=== PATIENT | female | born 1945 | race Asian ===

== ENCOUNTER 2019-12-22 09:50 | Outpatient (REF) | payer MEDICARE, MEDICAID, SELFPAY ==
[2019-12-22 11:45] LABS: Estimated Average Glucose 237 mg/dL; Hemoglobin A1c % 9.9 %
[2019-12-22 11:52] LABS: Anion Gap 12 (12-20); Blood Urea Nitrogen 16 mg/dL (9-16); Carbon Dioxide 29 mmol/L (22-29); Chloride 101 mmol/L (96-108); Estimated Glomerular Filt Rate > 60; Glucose Random 220 mg/dL (60-115); Potassium 4.3 mmol/l (3.3-5.1); Sodium 138 mmol/L (135-145)
[2019-12-23 08:07] LABS: LDL Cholesterol Direct 76 mg/dL (<100)
== END 2019-12-22 09:51 | disposition home or self-care (01) ==
LOC: HO.HMGCLDS 09:50
PROVIDERS: PCP Internal Medicine; Visit Provider Internal Medicine
DX: E11.65 Type 2 diabetes mellitus with hyperglycemia (principal); E78.9 Disorder of lipoprotein metabolism, unspecified; I10 Essential (primary) hypertension; Z79.4 Long term (current) use of insulin
CPT/HCPCS: 80048; 83036; 83721

== ENCOUNTER 2020-07-02 11:28 | Outpatient (REF) | payer MEDICARE, MEDICAID, SELFPAY ==
[2020-07-02 14:28] LABS: Alanine Aminotransferase 22 U/L (0-31); Alkaline Phosphatase 79 U/L (39-117); Anion Gap 12 (12-20); Aspartate Amino Transferase 26 U/L (5-31); Bilirubin Total 0.4 mg/dL (0.0-1.0); Blood Urea Nitrogen 13 mg/dL (9-16); Calcium 9.1 mg/dL (8.4-10.2); Carbon Dioxide 28 mmol/L (22-29); Chloride 101 mmol/L (96-108); Estimated Glomerular Filt Rate 59; Glucose Random 290 mg/dL (60-115); Potassium 4.3 mmol/L (3.3-5.1); Sodium 137 mmol/L (135-145); Total Protein 6.7 g/dL (6.5-8.0)
== END 2020-07-02 11:29 | disposition home or self-care (01) ==
LOC: HO.HMGCLDS 11:28
PROVIDERS: PCP Internal Medicine; Visit Provider Internal Medicine
DX: E78.9 Disorder of lipoprotein metabolism, unspecified (principal); I10 Essential (primary) hypertension
CPT/HCPCS: 36415; 80053

== ENCOUNTER 2020-09-25 09:24 | Emergency (ER) | payer MEDICARE, MEDICAID, SELFPAY ==
--- NOTE | ~2020-09-25 | CT_ITS ---
EXAMINATION: CT ANGIOGRAM HEAD AND NECK CLINICAL INFORMATION: Severe dizziness COMPARISON: None TECHNIQUE: Noncontrast CT examination of the head was performed initially. Test bolus sequences followed by intravenous administration 100 mL of Omnipaque 300 intravenous contrast. Helical imaging was performed in the axial plane from the mediastinum to the skull vertex. Delayed postcontrast imaging of the head was also performed. The data was processed at the sonography technologist's workstation for generation of MIP sequences. Three-dimensional volume rendered reformatted images were also generated at an offline 3-D workstation. This CT examination was performed using dose optimization techniques as appropriate, variously including the following: *Automated exposure control *Adjustment of mA and/or kV according to patient size (this includes techniques or standardized protocols for targeted exams where dose is matched to indication/reason for exam; i.e. extremities or head) *Use of iterative reconstruction technique The degree of stenosis determined by NASCET criteria. DLP: 2338 mGy-cm FINDINGS: SOFT TISSUES AND LUNG APICES: No overt abnormality is appreciated. CTA NECK: The aortic arch has a classic configuration and the major arch vessel origins are non-stenotic. The vertebral arteries are co-dominant and both vertebral origins are widely patent. Both common carotid arteries are normal in course and caliber. Both internal carotid arteries demonstrate mild atherosclerotic plaque without significant stenosis. CTA HEAD: There is normal opacification of the major intracranial vessels. No acute proximal large vessel occlusion, focal flow-limiting stenosis, or saccular intracranial aneurysm is identified. No abnormal parenchymal enhancement or regional oligemia is visualized. HEAD (noncontrast and delayed): No intracranial mass, intercerebral edema, hemorrhage, or midline shift is evident. The ventricles and sulci are stable in size and configuration. No extra-axial collections are appreciated. No pathologic intracranial enhancement. Cavernous carotid calcifications. Dural sinuses are patent. The paranasal sinuses are well-aerated and clear. CT/CT angio head neck IMPRESSION: No vascular occlusion or hemodynamic significant stenosis within the intracranial or extracranial arterial vasculature.
[2020-09-25 09:36] VITALS: BP 151/59; PULSE 73; RESP 16; TEMP 36.6; O2SAT 97; BMI 31.8
--- NOTE | 2020-09-25 09:56 | ED.DIZZY ---
HPI - Dizziness General Chief Complaint: Dizziness Stated Complaint: dizziness Time Seen by Provider: 09/25/20 09:56 Source: patient and family Mode of arrival: ambulatory Limitations: no limitations History of Present Illness HPI Narrative: Patient history of diabetes missed her insulin today with complaining of dizziness for last 2 weeks gets worse, when he when she extends or flexes and neck, feel off balance sometimes no headache no nausea no vomiting patient used to have dizziness long time ago not lately no fever no chills no shortness of breath no chest no palpitation Related Data Home Medications Medication Instructions Recorded Confirmed aspirin 81 mg tablet,delayed 81 mg PO DAILY 12/19/19 07/02/20 release (Adult Low Dose Aspirin) insulin glargine 100 unit/mL (3 unit SUBCUT 12/19/19 07/02/20 mL) subcutaneous pen insulin aspart U-100 100 unit/mL 0 - 20 unit SUBCUT TID 09/24/20 (3 mL) subcutaneous pen (Novolog Flexpen U-100 Insulin aspart) Previous Rx's Medication Instructions Recorded lisinopril 5 mg tablet 5 mg PO DAILY 90 Days #90 tab 07/28/20 simvastatin 40 mg tablet 40 mg PO BEDTIME 90 Days #90 tab 07/28/20 meclizine 12.5 mg tablet 12.5 mg PO TID PRN #30 tab 09/25/20 Allergies Allergy/AdvReac Type Severity Reaction Status Date / Time No Known Allergies Allergy Mild NONE Verified 09/24/20 10:13 Review of Systems Review of Systems: Yes all other systems are reviewed and are negative [facility] Past Medical History Medical History Diabetes 1.5, managed as type 1 Hypertension, essential Lipid disorder care home (current) use of insulin Non-compliant behavior Uncontrolled diabetes mellitus Surgical History History of cataract surgery History of hysterectomy History of surgery on wrist Family History Family History Father No problems noted. Mother Cancer Maternal Grandfather No problems noted. Maternal Grandmother No problems noted. Paternal Grandfather No problems noted. Paternal Grandmother No problems noted. Brother No problems noted. Brother No problems noted. Daughter No problems noted. Daughter Breast cancer Social History Social History Alcohol intake: never Patient Tobacco Use Status: Never used Tobacco Advance Directives: No Advance Directives Information Provided: No Physical Exam Vital Signs: Vital Signs: Last Vital Signs Temp 98.0 F 09/25/20 13:54 Pulse 57 09/25/20 13:54 Resp 18 09/25/20 13:54 BP 144/61 H 09/25/20 13:54 Pulse Ox 98 09/25/20 13:54 Body Mass Index 31.8 Appearance: Alert. Oriented X3. No acute distress. Eyes: PERRLA, No Nystagmus ENT: Pharynx normal. Oral Mucosa moist Neck: Normal inspection. Neck supple. CVS: Normal heart rate and rhythm. Pulses normal. Respiratory: No respiratory distress. Equal air entry bilateral, no wheezing/rales/rhonchi Abdomen: Soft and nontender. Bowel sounds are present, no mass palpable, no CVA tenderness Skin: Skin warm and dry. Normal skin color. Normal skin turgor. Extremities: No lower extremity edema. No calf tenderness Neuro: Oriented X 3. No motor deficit. No sensory deficit.No cerebellar signs , cranial nerves II-XII intact MDM - Dizziness MDM Narrative Medical decision making narrative: Patient with dizziness CTA head and neck is negative for any vascular pathology. No CVA likely benign positional vertigo discharge her on meclizine Differential Diagnosis Differential diagnosis: Likely benign paroxysmal positional vertigo Lab Data Attestation: I reviewed the patient's lab results. Result diagrams: 09/25/20 10:49 09/25/20 10:49 Labs: Lab Results 09/25/20 09/25/20 09/25/20 Range/Units 10:49 10:49 10:58 WBC 4.6 L (4.8-10.8) X10*3/uL RBC 3.96 L (4.20-5.50) X10*6/uL Hgb 11.4 L (12.0-16.0) g/dl Hct 35.1 L (37-47) % MCV 88.6 (80-98) fL MCH 28.8 (27.0-33.0) pg MCHC 32.5 (31.0-35.0) g/dl RDW 14.5 (11.0-16.0) % Plt Count 141 L (160-400) X10*3/uL MPV 11.2 (9.4-12.3) fL Immature Gran % (Auto) 0.2 (0.0-0.4) % Neut % (Auto) 56.8 (45-73) % Lymph % (Auto) 30.3 (20-40) % Beaver % (Auto) 10.0 (2-11) % Eos % (Auto) 2.0 (0-4) % Baso % (Auto) 0.7 (0-2) % Lymph # (Auto) 1.4 (1.2-4.9) X10*3/uL Beaver # (Auto) 0.5 (0.1-1.2) X10*3/uL Eos # (Auto) 0.1 (0.0-0.4) X10*3/uL Baso # (Auto) 0.0 (0.0-0.2) X10*3/uL Abs Immat Gran (auto) 0.01 (0.00-0.03) X10*3/uL Absolute Neuts (auto) 2.6 (2.0-8.3) X10*3/uL Absolute Nucleated RBC 0.000 (0.0-0.012) X10*3/uL Nucleated RBC % (auto) 0.0 (0.0-0.2) /100WBC Sodium 137 (135-145) mmol/L Potassium 4.1 (3.3-5.1) mmol/L Chloride 103 (96-108) mmol/L Carbon Dioxide 28 (22-29) mmol/L Anion Gap 10 L (12-20) BUN 15 (9-16) mg/dL Creatinine 1.00 (0.5-1.4) mg/dL Estim Creat Clear Calc 45.8 Estimated GFR 54 POC Glucose (60-115) mg/dL Random Glucose 369 H* (60-115) mg/dL Calcium 9.3 (8.4-10.2) mg/dL Total Bilirubin 0.3 (0.0-1.0) mg/dL Direct Bilirubin < 0.2 (0.0-0.5) mg/dL AST 27 (5-31) U/L ALT 27 (0-31) U/L Alkaline Phosphatase 77 (39-117) U/L Total Protein 6.1 L (6.5-8.0) g/dL Albumin 3.5 (3.5-5.0) g/dL Urine Color YELLOW Urine Appearance CLEAR Urine pH 5.5 (5.0-8.0) Ur Specific [place] 1.015 (1.005-1.025) Urine Protein NEG (NEG-TRACE) MG/DL Urine Glucose (UA) >=1000 H (NEG) MG/DL Urine Ketones NEG (NEG) MG/DL Urine Blood NEG (NEG) Urine Nitrite NEG (NEG) Ur Leukocyte Esterase NEG (NEG) Urine RBC 0-2 (0) /HPF Urine WBC 0-2 (0-4) /HPF Ur Squamous Epith Cells 2+ /LPF Urine Bacteria TRACE /LPF 09/25/20 Range/Units 12:37 WBC (4.8-10.8) X10*3/uL RBC (4.20-5.50) X10*6/uL Hgb (12.0-16.0) g/dl Hct (37-47) % MCV (80-98) fL MCH (27.0-33.0) pg MCHC (31.0-35.0) g/dl RDW (11.0-16.0) % Plt Count (160-400) X10*3/uL MPV (9.4-12.3) fL Immature Gran % (Auto) (0.0-0.4) % Neut % (Auto) (45-73) % Lymph % (Auto) (20-40) % Beaver % (Auto) (2-11) % Eos % (Auto) (0-4) % Baso % (Auto) (0-2) % Lymph # (Auto) (1.2-4.9) X10*3/uL [place]aver # (Auto) (0.1-1.2) X10*3/uL Eos # (Auto) (0.0-0.4) X10*3/uL Baso # (Auto) (0.0-0.2) X10*3/uL Abs Immat Gran (auto) (0.00-0.03) X10*3/uL Absolute Neuts (auto) (2.0-8.3) X10*3/uL Absolute Nucleated RBC (0.0-0.012) X10*3/uL Nucleated RBC % (auto) (0.0-0.2) /100WBC Sodium (135-145) mmol/L Potassium (3.3-5.1) mmol/L Chloride (96-108) mmol/L Carbon Dioxide (22-29) mmol/L Anion Gap (12-20) BUN (9-16) mg/dL Creatinine (0.5-1.4) mg/dL Estim Creat Clear Calc Estimated GFR POC Glucose 235 H (60-115) mg/dL Random Glucose (60-115) mg/dL Calcium (8.4-10.2) mg/dL Total Bilirubin (0.0-1.0) mg/dL Direct Bilirubin (0.0-0.5) mg/dL AST (5-31) U/L ALT (0-31) U/L Alkaline Phosphatase (39-117) U/L Total Protein (6.5-8.0) g/dL Albumin (3.5-5.0) g/dL Urine Color Urine Appearance Urine pH (5.0-8.0) Ur Specific [place] (1.005-1.025) Urine Protein (NEG-TRACE) MG/DL Urine Glucose (UA) (NEG) MG/DL Urine Ketones (NEG) MG/DL Urine Blood (NEG) Urine Nitrite (NEG) Ur Leukocyte Esterase (NEG) Urine RBC (0) /HPF Urine WBC (0-4) /HPF Ur Squamous Epith Cells /LPF Urine Bacteria /LPF Discharge Plan Discharge Clinical Impression: Benign paroxysmal positional vertigo Patient Disposition: Home, Self-Care Instructions: Benign Paroxysmal Positional Vertigo (ED) Additional Instructions: Take your insulin for diabetes as prescribed Medication for dizziness every 8 hours as needed Care and cautions as advised Follow-up with your PCP if not better Prescriptions: New meclizine 12.5 mg tablet 12.5 mg PO TID PRN (Reason: dizziness) Qty: 30 RF: 0 No Action lisinopril 5 mg tablet 5 mg PO DAILY 90 Days Qty: 90 RF: 0 simvastatin 40 mg tablet 40 mg PO BEDTIME 90 Days Qty: 90 RF: 0 Basaglar KwikPen U-100 Insulin 100 unit/mL (3 mL) insulin pen subcut RF: 0 aspirin [Adult Low Dose Aspirin] 81 mg tablet,delayed release (DR/EC) 81 mg PO DAILY RF: 0 Interventions: ED Discharge Assessment Last Done: 09/25/20 14:11 Discharge Date/Time: 09/25/20 14:12
--- NOTE | 2020-09-25 10:39 | ECG_ITS ---
Test Reason : DIZZINESS Blood Pressure : / mmHG Vent. Rate : 065 BPM Atrial Rate : 065 BPM P-R Int : 162 ms QRS Dur : 076 ms QT Int : 388 ms P-R-T Axes : -39 014 043 degrees QTc Int : 403 ms Unusual P axis, possible ectopic atrial rhythm Low voltage QRS Abnormal ECG When compared with ECG of 09-JAN-2008 15:28, Ectopic atrial rhythm has replaced Sinus rhythm Referred By: Williams Salgado Electronically Signed By:EMILIE JOHN
[2020-09-25 10:53] LABS: MANUAL DIFF FLAG NO
[2020-09-25 10:56] LABS: Basophils Percent Auto 0.7 % (0-2); Eosinophils Absolute Auto 0.1 X10*3/uL (0.0-0.4); Hematocrit 35.1 % (37-47); Hemoglobin 11.4 g/dl (12.0-16.0); Imm Gran Abs Auto 0.01 X10*3/uL (0.00-0.03); Imm Gran Pct Auto 0.2 % (0.0-0.4); Lymphocytes Absolute Auto 1.4 X10*3/uL (1.2-4.9); Lymphocytes Percent Auto 30.3 % (20-40); Mean Corpuscular HGB Conc 32.5 g/dl (31.0-35.0); Mean Corpuscular Hemoglobin 28.8 pg (27.0-33.0); Mean Corpuscular Volume 88.6 fL (80-98); Mean Platelet Volume 11.2 fL (9.4-12.3); Monocytes Absolute Auto 0.5 X10*3/uL (0.1-1.2); Neutrophils Absolute Auto 2.6 X10*3/uL (2.0-8.3); Neutrophils Percent Auto 56.8 % (45-73); Platelet Count 141 X10*3/uL (160-400); Red Blood Count 3.96 X10*6/uL (4.20-5.50); Red Cell Distribution Width 14.5 % (11.0-16.0); White Blood Count 4.6 X10*3/uL (4.8-10.8)
[2020-09-25 11:06] LABS: Appearance Urine CLEAR; Color Urine YELLOW; Glucose Urine UA >=1000 MG/DL (NEG); Leukocyte Esterase Urine NEG (NEG); Nitrite Urine NEG (NEG); PH 5.5 (5.0-8.0); Specific Gravity - Urine 1.015 (1.005-1.025); Urine Blood NEG (NEG); Urine Ketones NEG (NEG); Urine Protein NEG (NEG-TRACE)
[2020-09-25 11:13] LABS: Bacteria Urine TRACE /LPF; RBC Urine 0-2 /HPF (0); Squamous Epithelial Cell Urine 2+ /LPF; WBC Urine 0-2 /HPF (0-4)
[2020-09-25 11:26] LABS: Alanine Aminotransferase 27 U/L (0-31); Albumin Level 3.5 g/dL (3.5-5.0); Alkaline Phosphatase 77 U/L (39-117); Anion Gap 10 (12-20); Aspartate Amino Transferase 27 U/L (5-31); Bilirubin Direct < 0.2 mg/dL (0.0-0.5); Bilirubin Total 0.3 mg/dL (0.0-1.0); Blood Urea Nitrogen 15 mg/dL (9-16); Calcium 9.3 mg/dL (8.4-10.2); Carbon Dioxide 28 mmol/L (22-29); Chloride 103 mmol/L (96-108); Creatinine Clr Calc Pharmacy 45.8; Estimated Glomerular Filt Rate 54; Glucose Random 369 mg/dL (60-115); Potassium 4.1 mmol/L (3.3-5.1); Sodium 137 mmol/L (135-145); Total Protein 6.1 g/dL (6.5-8.0)
[2020-09-25] MEDS: Insulin Lispro 100 UNIT/ML 3 ML VIAL 8 UNIT SUBCUT (11:58)
[2020-09-25 11:59] VITALS: BP 137/52; PULSE 61; RESP 17; O2SAT 99
[2020-09-25] MEDS: 0.9 % Sodium Chloride 1,000 ML 999 ML IVCONT (11:59)
[2020-09-25 12:40] LABS: Glucose, Whole Blood 235 mg/dL (60-115)
[2020-09-25] MEDS: iohexoL 350 MG/ML 100 ML INFUS..BTL 65 ML IV (12:55)
[2020-09-25 13:54] VITALS: BP 144/61; PULSE 57; RESP 18; TEMP 36.7; O2SAT 98
== END 2020-09-25 14:12 | disposition home or self-care (01) ==
PROVIDERS: Emergency Provider Internal Medicine; PCP Internal Medicine
DX: H81.10 Benign paroxysmal vertigo, unspecified ear (principal); E10.9 Type 1 diabetes mellitus without complications; E78.5 Hyperlipidemia, unspecified; I10 Essential (primary) hypertension; Z79.4 Long term (current) use of insulin; Z79.82 Long term (current) use of aspirin; Z79.899 Other long term (current) drug therapy; Z79.02 Long term (current) use of antithrombotics/antiplatelets
CPT/HCPCS: 36415; 70496; 70498; 80048; 80076; 81001; 82947; 85025; 93005; 96360; 99284; Q9967

== ENCOUNTER 2021-01-21 09:53 | Outpatient (REF) | payer MEDICARE, MEDICAID, SELFPAY ==
[2021-01-21 12:13] LABS: Alanine Aminotransferase 34 U/L (0-31); Albumin Level 4.1 g/dL (3.5-5.0); Alkaline Phosphatase 84 U/L (39-117); Anion Gap 11 (12-20); Aspartate Amino Transferase 36 U/L (5-31); Bilirubin Total 0.5 mg/dL (0.0-1.0); Blood Urea Nitrogen 12 mg/dL (9-16); Calcium 9.6 mg/dL (8.4-10.2); Carbon Dioxide 30 mmol/L (22-29); Chloride 106 mmol/L (96-108); Estimated Glomerular Filt Rate 60; Glucose Random 125 mg/dL (60-115); Potassium 4.3 mmol/L (3.3-5.1); Sodium 143 mmol/L (135-145)
[2021-01-21 12:16] LABS: Creatinine Urine 202.75 mg/dL; Microalbum/Creatinine Ratio Ur 7.8 ug/mg cr
[2021-01-23 20:55] LABS: LDL Cholesterol Direct 89 mg/dL (<100)
== END 2021-01-21 09:54 | disposition home or self-care (01) ==
LOC: HO.HMGCLDS 09:53
PROVIDERS: PCP Internal Medicine; Visit Provider Internal Medicine
DX: E13.9 Other specified diabetes mellitus without complications (principal); I10 Essential (primary) hypertension; E78.9 Disorder of lipoprotein metabolism, unspecified; Z79.4 Long term (current) use of insulin
CPT/HCPCS: 36415; 80053; 82043; 83721; 84443

== ENCOUNTER 2021-10-31 09:03 | Outpatient (REF) | payer MEDICARE, MEDICAID, SELFPAY ==
[2021-10-31 11:22] LABS: MANUAL DIFF FLAG NO
[2021-10-31 11:37] LABS: Basophils Absolute Auto 0.1 X10*3/uL (0.0-0.2); Basophils Percent Auto 1.1 % (0-2); Eosinophils Absolute Auto 0.1 X10*3/uL (0.0-0.4); Eosinophils Percent Auto 1.6 % (0-4); Hematocrit 40.1 % (37.0-47.0); Hemoglobin 12.8 g/dl (12.0-16.0); Imm Gran Abs Auto 0.01 X10*3/uL (0.00-0.03); Imm Gran Pct Auto 0.2 % (0.0-0.4); Lymphocytes Absolute Auto 2.2 X10*3/uL (1.2-4.9); Lymphocytes Percent Auto 39.7 % (20-40); Mean Corpuscular HGB Conc 31.9 g/dl (31.0-35.0); Mean Corpuscular Hemoglobin 28.4 pg (27.0-33.0); Mean Corpuscular Volume 88.9 fL (80.0-98.0); Mean Platelet Volume 11.6 fL (9.4-12.3); Monocytes Absolute Auto 0.5 X10*3/uL (0.1-1.2); Monocytes Percent Auto 8.8 % (2-11); Neutrophils Absolute Auto 2.7 x10*3/uL (2.0-8.3); Neutrophils Percent Auto 48.6 % (45-73); Platelet Count 178 X10*3/uL (160-400); Red Blood Count 4.51 X10*6/uL (4.20-5.50); Red Cell Distribution Width 14.7 % (11.0-16.0); White Blood Count 5.5 X10*3/uL (4.8-10.8)
[2021-10-31 11:44] LABS: Estimated Average Glucose 206 mg/dL; Hemoglobin A1c % 8.8 %
[2021-10-31 12:04] LABS: Alanine Aminotransferase 34 U/L (0-31); Albumin Level 4.3 g/dL (3.5-5.0); Alkaline Phosphatase 98 U/L (39-117); Anion Gap 14 (12-20); Aspartate Amino Transferase 31 U/L (5-31); Bilirubin Total 0.4 mg/dL (0.0-1.0); Blood Urea Nitrogen 12 mg/dL (9-16); Calcium 9.7 mg/dL (8.4-10.2); Carbon Dioxide 28 mmol/L (22-29); Chloride 104 mmol/L (96-108); Cholesterol 173 mg/dL; Estimated Glomerular Filt Rate 58; Glucose Fasting 61 mg/dL (60-99); HDL Cholesterol 39 mg/dL; LDL Cholesterol Calculated 103 mg/dl; Potassium 4.1 mmol/L (3.3-5.1); Sodium 142 mmol/L (135-145); Total Protein 7.2 g/dL (6.5-8.0); Triglycerides 156 mg/dL
== END 2021-10-31 09:04 | disposition home or self-care (01) ==
LOC: HO.HMGCLDS 09:03
PROVIDERS: PCP Internal Medicine; Visit Provider Internal Medicine
DX: Z00.01 Encounter for general adult medical examination with abnormal findings (principal); E78.9 Disorder of lipoprotein metabolism, unspecified; I10 Essential (primary) hypertension; Z79.4 Long term (current) use of insulin; E13.9 Other specified diabetes mellitus without complications
CPT/HCPCS: 36415; 80053; 80061; 83036; 85025

== ENCOUNTER 2022-06-06 09:45 | Outpatient (REF) | payer MEDICARE, MEDICAID, SELFPAY ==
[2022-06-06 11:16] LABS: MANUAL DIFF FLAG NO
[2022-06-06 11:30] LABS: Basophils Absolute Auto 0.1 X10*3/uL (0.0-0.2); Eosinophils Absolute Auto 0.1 X10*3/uL (0.0-0.4); Eosinophils Percent Auto 0.9 % (0-4); Hematocrit 41.9 % (37.0-47.0); Hemoglobin 13.7 g/dl (12.0-16.0); Imm Gran Abs Auto 0.01 X10*3/uL (0.00-0.03); Imm Gran Pct Auto 0.2 % (0.0-0.4); Lymphocytes Absolute Auto 1.8 X10*3/uL (1.2-4.9); Lymphocytes Percent Auto 31.1 % (20-40); Mean Corpuscular HGB Conc 32.7 g/dl (31.0-35.0); Mean Corpuscular Hemoglobin 29.5 pg (27.0-33.0); Mean Corpuscular Volume 90.1 fL (80.0-98.0); Mean Platelet Volume 11.3 fL (9.4-12.3); Monocytes Absolute Auto 0.4 X10*3/uL (0.1-1.2); Monocytes Percent Auto 7.3 % (2-11); Neutrophils Absolute Auto 3.4 x10*3/uL (2.0-8.3); Neutrophils Percent Auto 59.5 % (45-73); Platelet Count 199 X10*3/uL (160-400); Red Blood Count 4.65 X10*6/uL (4.20-5.50); Red Cell Distribution Width 14.6 % (11.0-16.0); White Blood Count 5.8 X10*3/uL (4.8-10.8)
[2022-06-06 11:43] LABS: Estimated Average Glucose 223 mg/dL; Hemoglobin A1c % 9.4 %
[2022-06-06 12:14] LABS: Alanine Aminotransferase 43 U/L (0-31); Albumin Level 4.3 g/dL (3.5-5.0); Alkaline Phosphatase 107 U/L (39-117); Anion Gap 12 (12-20); Aspartate Amino Transferase 39 U/L (5-31); Bilirubin Total 0.4 mg/dL (0.0-1.0); Blood Urea Nitrogen 17 mg/dL (9-16); Calcium 10.2 mg/dL (8.4-10.2); Carbon Dioxide 29 mmol/L (22-29); Chloride 102 mmol/L (96-108); Estimated Glomerular Filt Rate 60; Glucose Random 218 mg/dL (60-115); Potassium 4.1 mmol/L (3.3-5.1); Sodium 139 mmol/L (135-145); Total Protein 7.4 g/dL (6.5-8.0)
[2022-06-08 00:33] LABS: LDL Cholesterol Direct 76 mg/dL (<100)
== END 2022-06-06 09:46 | disposition home or self-care (01) ==
LOC: HO.HMGCLDS 09:45
PROVIDERS: PCP Internal Medicine; Visit Provider Internal Medicine
DX: E13.9 Other specified diabetes mellitus without complications (principal); E78.9 Disorder of lipoprotein metabolism, unspecified; I10 Essential (primary) hypertension; L30.9 Dermatitis, unspecified; Z79.4 Long term (current) use of insulin
CPT/HCPCS: 36415; 80053; 83036; 83721; 85025

== ENCOUNTER 2023-01-24 08:54 | Outpatient (AMB) | payer MEDICARE, MEDICAID, SELFPAY ==
[2023-01-24 08:58] VITALS: BP 132/56; PULSE 77; O2SAT 99; BMI 32.0
--- NOTE | 2023-01-24 09:01 | AM.OFFVISMDC ---
Intake Vital Signs 01/24/23 08:58 Height 5 ft 2 in Weight 175 lb 2 oz BMI 32.0 BP 132/56 L Blood Pressure Location Rt brachial Position Sitting Pulse 77 Pulse Source Pulse Oximeter Pulse Oximetry (%) 99 Oxygen Delivery Method Room Air Intake Visit Reasons: SWV G0439 ~ Allergies dulaglutide [From Trulicity] Adverse Reaction (Intermediate, Verified 01/24/23 09:01) Dizziness HPI SWV G0439 ~ HPI Details Patient declined to do mammogram Declined to do OBGYN visit Declined to do colonoscopy Patient is going to [facility] endocrinology for the management of diabetes She does not remember what was her last A1c Blood pressure is stable patient is on lisinopril And she is also on statin for lipid control BMI is elevated need to lose weight Patient has already received diabetic teachings Lab order placed to be done today Follow-up May HPI Comments History of Present Illness Details AWV Medical/social history reviewed Past medical history reviewed [place] of care / care team list updated Surgical/ hospitalization history reviewed Current medications including OTC and supplements reviewed Family history reviewed Tobacco controlled form updated Alcohol use form updated Illicit drug use in social history reviewed Current diagnosis of depression ?screening updated Appropriate PHQ 2/PHQ-9 completed . Vital signs reviewed Alcohol tobacco drug use reviewed and discussed . MMSE completed . ? Fall risk: ?Assessed Fall history: ?None Have you had any falls with injury in the past year?? No Have you had 2 or more falls in the past year?? No Fall risk assessment completed Home safety discussed with the patient Functional ability assessed and discussed and documented Activities of daily living reviewed and appropriate actions taken . HRA filled out by the patient and reviewed by provider and scanned . Appropriate written screening schedule established . Any health advise needed provided . Advance care planning discussed with the patient , necessary paperwork filled Examination IPPE/AWE: Balance intact Romberg intact Tandem walk failed walk-in turn intact rise from sit to stand intact . ?Hearing ?whisper test failed . Medication list reviewed, patient is stable on medications All other providers patient is seeing discussed and noted . [facility] Medical History Uncontrolled diabetes mellitus Non-compliant behavior Lipid disorder Hypertension, essential emt intermediate (current) use of insulin Diabetes 1.5, managed as type 1 Surgical History History of cataract surgery History of surgery on wrist History of hysterectomy Family History Father No problems noted. Mother Cancer Maternal Grandfather No problems noted. Maternal Grandmother No problems noted. Paternal Grandfather No problems noted. Paternal Grandmother No problems noted. Brother No problems noted. Brother No problems noted. Daughter No problems noted. Daughter Breast cancer Social History Housing: House Alcohol intake: never Patient Tobacco Use Status: Never used Tobacco e-Cigarette/Vaping Use: Never Used service: No Current occupational status: retired Cognitive needs: No Hearing needs: No Vision needs: Yes Questionnaire Medicare Wellness Checkup [age] What gender do you identify with?: female During the past 4 weeks, how much have you been bothered by emotional problems such as feeling anxious, depressed, irritable, sad or downhearted, and blue?: not at all During the past 4 weeks, has your physical & emotional health limited your social activities with family, friends, neighbors, or groups?: not at all During the past 4 weeks, how much bodily pain have you generally had?: no pain During the past 4 weeks, was someone available to help you if you needed & wanted help?: yes, a little During the past 4 weeks, what was the hardest physical activity you could do for at least 2 minutes?: light Can you get to places out of walking distance without help? (For eg., can you travel alone on buses, taxis or drive your car?): No Can you go shopping for groceries or clothes without someone's help?: No Can you prepare your own meals?: Yes Can you do your housework without help?: No Because of any health problems, do you need the help of another person with your personal care needs such as eating, bathing, dressing or getting around the house?: Yes Can you handle your own money without help?: Yes During the past 4 weeks, how would you rate your health in general?: fair During the past 4 weeks how have things been going for you?: good & bad parts about equal Are you having difficulties driving your car?: not applicable, I don't use a car Do you always fasten your seat belt when you are in a car?: yes, usually During past 4 weeks, have you been bothered by the following: never: Sexual problems?, seldom: Teeth or denture problems?, sometimes: Falling or dizzy when standing up, Trouble eating well? and Problems using the telephone? and often: Tiredness or fatigue? Have you fallen 2 or more times in the past year?: Yes Are you afraid of falling?: Yes Are you a smoker?: no During the past 4 weeks, how many drinks of wine, beer, or other alcoholic beverages did you have?: no alcohol at all Do you exercise for about 20 minutes 3 or more times a week?: yes, some of the time Have you been given information to help with the following?: yes: Keeping track of your medications? and no: Hazards in your house that might hurt you? How confident are you that you can control & manage most of your health problems?: somewhat confident What is your race?: Mini Mental State Exam (MMSE) Orientation What is the (year) (season) (date) (day) (month)?: year, season, date, day and month Where are we (state) (county) (town or city) (hospital) (floor)?: state, county, town or city, hospital/clinic and floor Score Score: 10 Activity of Daily Living Bathing - sponge bath, tub bath or shower: receives no assistance (gets in/out by self, if usual bathing means Dressing - getting clothes from closets & drawers, including inner/outer garments & fasteners.: gets clothes & gets completely dressed without help Toileting - going to the 'toilet room' for urine/bowel elimination & cleaning self/arranging clothes: goes to toilet room, cleans self, arranges clothes without help Transfer: moves in & out of bed and chair without help (may use support object) Continence: controls urination/bowel movements completely by self Feeding: feeds self without help Total Score: 0 Information obtained from: informant Using telephone: independent Traveling: dependent Shopping: dependent Preparing meals: independent Housework: needs assistance Taking medicine: needs assistance Managing money: dependent PHQ-9 Over the last 2 weeks, how often have you been bothered by any of the following problems? 1. Little interest or pleasure in doing things: several days 2. Feeling down, depressed, or hopeless: several days 3. Trouble falling or staying asleep, or sleeping too much: several days 4. Feeling tired or having little energy: several days 5. Poor appetite or overeating: not at all 6. Feeling bad about yourself - or that you are a failure or have let yourself or your family down: not at all 7. Trouble concentrating on things, such as reading the newspaper or watching television: not at all 8. Moving or speaking so slowly that other people could have noticed. Or the opposite - being so fidgety or restless that you have been moving around a lot more than usual: more than half the days 9. Thoughts that you would be better off or of hurting yourself in some way: not at all Total score: 6 Depression Screening Interpretation: Negative Depression Screening Done: Yes 21528 - PHQ-9 Billing: Yes Source: Developed by Drs. Oliver Hawkins, Apolonia Hoffman, Mau Anderson and colleagues, with an educational delphine from [facility] EHR. Review of Systems Const Denies chills and Denies fever(s) ENT Denies epistaxis and Denies nasal discharge Card Denies chest pain Resp Denies chest congestion, Denies cough and Denies hemoptysis GI Denies diarrhea and Denies nausea Skin/Breast Denies rash Neuro Reports no additional complaints Psych Reports no additional complaints Endo Reports no additional complaints Physical Exam Vital Signs: Last Vital Signs Pulse 77 01/24/23 08:58 BP 132/56 L 01/24/23 08:58 Pulse Ox 99 01/24/23 08:58 Oxygen Delivery Method Room Air 01/24/23 08:58 BMI result Body Mass Index 32.0 Const General: cooperative, comfortable and no acute distress Orientation/consciousness: patient oriented x3 HEENT Head: Yes normocephalic Eyes General: appearance normal, both eyes and all related structures Neck Other: Supple Neck: Yes supple Resp Effort & Inspection: normal respiratory effort, no cough and no stridor Cardio Rhythm: regular rhythm Heart sounds: S1 normal heart sound present and S2 normal heart sound present Skin General skin exam: turgor normal Neuro Other: Motor sensory intact General: patient oriented x3, tone normal and moves all extremities Extrem Other: No lower extremity swelling. Right lower extremity: no edema Left lower extremity: no edema Psych Other: Normal effect, speech clear Assessment & Plan Assessment & Plan (1) Medicare annual wellness visit, subsequent: Code(s): Z00.00 - Encounter for general adult medical examination without abnormal findings (2) emt intermediate (current) use of insulin: Code(s): Z79.4 - emt intermediate (current) use of insulin (3) Diabetes mellitus type 2 in obese: Code(s): E11.69 - Type 2 diabetes mellitus with other specified complication; E66.9 - Obesity, unspecified (4) Lipid disorder: Code(s): E78.9 - Disorder of lipoprotein metabolism, unspecified (5) Hypertension, essential: Code(s): I10 - Essential (primary) hypertension (6) Obesity due to excess calories: Code(s): E66.09 - Other obesity due to excess calories Qualifiers: Body mass index: BMI 32.0-32.9 Obesity classification: adult class 1 (BMI 30 - 34.9) Serious obesity comorbidity presence: with serious comorbidity Qualified Code(s): E66.09 - Other obesity due to excess calories; Z68.32 - Body mass index [BMI] 32.0-32.9, adult Plan Patient declined to do mammogram Declined to do OBGYN visit Declined to do colonoscopy Patient is going to [facility] endocrinology for the management of diabetes She does not remember what was her last A1c Blood pressure is stable patient is on lisinopril And she is also on statin for lipid control BMI is elevated need to lose weight Patient has already received diabetic teachings Lab order placed to be done today Follow-up May Orders: Orders Comprehensive Met. Panel Today E11.65 - Type 2 diabetes mellitus with hyperglycemia, E78.9 - Disorder of lipoprotein metabolism, unspecified, I10 - Essential (primary) hypertension, Z79.4 - FPC (current) use of insulin LDL Cholesterol Direct Today E11.65 - Type 2 diabetes mellitus with hyperglycemia, E78.9 - Disorder of lipoprotein metabolism, unspecified, I10 - Essential (primary) hypertension, Z79.4 - FPC (current) use of insulin Microalbumin, Random (w Creat) Today E11.65 - Type 2 diabetes mellitus with hyperglycemia, E78.9 - Disorder of lipoprotein metabolism, unspecified, I10 - Essential (primary) hypertension, Z79.4 - FPC (current) use of insulin Hemoglobin A1c Today E11.65 - Type 2 diabetes mellitus with hyperglycemia, E78.9 - Disorder of lipoprotein metabolism, unspecified, I10 - Essential (primary) hypertension, Z79.4 - FPC (current) use of insulin Complete Blood Count Auto Diff Today E11.65 - Type 2 diabetes mellitus with hyperglycemia, E78.9 - Disorder of lipoprotein metabolism, unspecified, I10 - Essential (primary) hypertension, Z79.4 - FPC (current) use of insulin Quality Reporting (2020) Depression/Bipolar (159/160/161/177) PHQ-9: Total score: 6 Coding Level of Care Code Medicare Subsequent (G0439) Est Pt Level 3 (56441) Diagnoses Medicare annual wellness visit, subsequent Z00.00 FPC (current) use of insulin Z79.4 Diabetes mellitus type 2 in obese E11.69; E66.9 Lipid disorder E78.9 Hypertension, essential I10 Class 1 obesity due to excess calories with serious comorbidity and body mass index (BMI) of 32.0 to 32.9 in adult E66.09; Z68.32 Body mass index: BMI 32.0-32.9 Obesity classification: adult class 1 (BMI 30 - 34.9) Serious obesity comorbidity presence: with serious comorbidity
== END 2023-01-24 16:16 | disposition home or self-care (01) ==
PROVIDERS: PCP Internal Medicine; Visit Provider Internal Medicine
DX: Z00.00 Encounter for general adult medical examination without abnormal findings (principal); Z79.4 Long term (current) use of insulin; E11.69 Type 2 diabetes mellitus with other specified complication; Z68.32 Body mass index [BMI] 32.0-32.9, adult; E66.9 Obesity, unspecified; E78.9 Disorder of lipoprotein metabolism, unspecified; I10 Essential (primary) hypertension; E66.09 Other obesity due to excess calories
CPT/HCPCS: G0439

== ENCOUNTER 2023-01-24 09:43 | Outpatient (REF) | payer MEDICARE, MEDICAID, SELFPAY ==
[2023-01-24 13:07] LABS: MANUAL DIFF FLAG NO
[2023-01-24 13:29] LABS: Basophils Absolute Auto 0.1 X10*3/uL (0.0-0.2); Basophils Percent Auto 1.4 % (0-2); Eosinophils Absolute Auto 0.2 X10*3/uL (0.0-0.4); Eosinophils Percent Auto 2.9 % (0-4); Hematocrit 39.3 % (37.0-47.0); Hemoglobin 12.8 g/dl (12.0-16.0); Imm Gran Abs Auto 0.02 X10*3/uL (0.00-0.03); Imm Gran Pct Auto 0.4 % (0.0-0.4); Lymphocytes Absolute Auto 2.1 X10*3/uL (1.2-4.9); Lymphocytes Percent Auto 40.6 % (20-40); Mean Corpuscular HGB Conc 32.6 g/dl (31.0-35.0); Mean Corpuscular Hemoglobin 29.6 pg (27.0-33.0); Mean Corpuscular Volume 90.8 fL (80.0-98.0); Mean Platelet Volume 11.6 fL (9.4-12.3); Monocytes Absolute Auto 0.5 X10*3/uL (0.1-1.2); Monocytes Percent Auto 9.5 % (2-11); Neutrophils Absolute Auto 2.3 x10*3/uL (2.0-8.3); Neutrophils Percent Auto 45.2 % (45-73); Platelet Count 178 X10*3/uL (160-400); Red Blood Count 4.33 X10*6/uL (4.20-5.50); Red Cell Distribution Width 14.7 % (11.0-16.0); White Blood Count 5.2 X10*3/uL (4.8-10.8)
[2023-01-24 13:43] LABS: Estimated Average Glucose 183 mg/dL
[2023-01-24 14:00] LABS: Alanine Aminotransferase 51 U/L (0-31); Albumin Level 4.2 g/dL (3.5-5.0); Alkaline Phosphatase 85 U/L (39-117); Anion Gap 11 (12-20); Aspartate Amino Transferase 33 U/L (5-31); Bilirubin Total 0.4 mg/dL (0.0-1.0); Blood Urea Nitrogen 20 mg/dL (9-16); Calcium 10.5 mg/dL (8.4-10.2); Carbon Dioxide 31 mmol/L (22-29); Chloride 106 mmol/L (96-108); Estimated Glomerular Filt Rate > 60; Glucose Random 57 mg/dL (60-115); Potassium 3.7 mmol/L (3.3-5.1); Sodium 144 mmol/L (135-145); Total Protein 7.7 g/dL (6.5-8.0)
[2023-01-24 14:04] LABS: Creatinine Urine 186.44 mg/dL
[2023-01-26 01:39] LABS: LDL Cholesterol Direct 81 mg/dL (<100)
== END 2023-01-24 09:44 | disposition home or self-care (01) ==
LOC: HO.HMGCLDS 09:43
PROVIDERS: PCP Internal Medicine; Visit Provider Internal Medicine
DX: E11.65 Type 2 diabetes mellitus with hyperglycemia (principal); E78.9 Disorder of lipoprotein metabolism, unspecified; I10 Essential (primary) hypertension; Z79.4 Long term (current) use of insulin
CPT/HCPCS: 36415; 80053; 82043; 82570; 83036; 83721; 85025

== ENCOUNTER 2023-07-27 08:11 | Outpatient (AMB) | payer MEDICARE, MEDICAID, SELFPAY ==
[2023-07-27 08:12] VITALS: BP 140/58; PULSE 82; O2SAT 99; BMI 32.9
--- NOTE | 2023-07-27 08:12 | A.OFFPC_ITS ---
Vital Signs 07/27/23 08:12 Height 5 ft 2 in Weight 180 lb BMI 32.9 BP 140/58 H Blood Pressure Location Lt brachial Position Sitting Pulse 82 Pulse Source Pulse Oximeter Pulse Oximetry (%) 99 Oxygen Delivery Method Room Air Intake Visit Reasons: 6 month follow up Allergies [facility] [[facility] Adverse Reaction (Intermediate, Verified 01/24/23 09:01) Dizziness Medication List - Last Reconciled 07/27/23 by Keyla Fragoso MD aspirin (Adult Low Dose Aspirin) 81 mg PO DAILY insulin aspart U-100 (Novolog FlexPen U-100 Insulin aspart) 0 - 20 units subcut TID insulin glargine 45 units subcut lisinopril 20 mg PO DAILY 90 days meclizine 25 mg PO BID-TID PRN 30 days simvastatin 40 mg PO BEDTIME 90 days Tobacco use date assessed: 06/06/22 HPI 6 month follow up HPI Details Patient is 78-year-old female came in today for her six-month follow-up appointment Patient is in her usual state of health except complaining of dizziness with the movement Which has been happening for the past 3 weeks. 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 Follow-up 6 months HPI Comments History of Present Illness Details This is a longitudinal relationship between me and the patient. Ongoing care provided, patient was provided time to ask questions [facility] Medical History Uncontrolled diabetes mellitus Non-compliant behavior Lipid disorder Hypertension, essential senior living (current) use of insulin Diabetes 1.5, managed as type 1 Surgical History History of cataract surgery History of surgery on wrist History of hysterectomy Family History Father No problems noted. Mother Cancer Maternal Grandfather No problems noted. Maternal Grandmother No problems noted. Paternal Grandfather No problems noted. Paternal Grandmother No problems noted. Brother No problems noted. Brother No problems noted. Daughter No problems noted. Daughter Breast cancer Social History Housing: House Alcohol intake: never Patient Tobacco Use Status: Never used Tobacco e-Cigarette/Vaping Use: Never Used service: No Current occupational status: retired Cognitive needs: No Hearing needs: No Vision needs: Yes Questionnaire PHQ-9 Over the last 2 weeks, how often have you been bothered by any of the following problems? 1. Little interest or pleasure in doing things: not at all 2. Feeling down, depressed, or hopeless: not at all 3. Trouble falling or staying asleep, or sleeping too much: several days 4. Feeling tired or having little energy: several days 5. Poor appetite or overeating: not at all 6. Feeling bad about yourself - or that you are a failure or have let yourself or your family down: not at all 7. Trouble concentrating on things, such as reading the newspaper or watching television: not at all 8. Moving or speaking so slowly that other people could have noticed. Or the opposite - being so fidgety or restless that you have been moving around a lot more than usual: more than half the days 9. Thoughts that you would be better off or of hurting yourself in some way: not at all Total score: 4 Depression Screening Interpretation: Negative Depression Screening Done: Yes 89566 - PHQ-9 Billing: Yes Source: Developed by Drs. Oliver Hawkins, Apolonia Hoffman, Mau Anderson and colleagues, with an educational delphine from [employer]. Thrive Questionnaire Date Thrive assessed: 07/27/23 I am a: Patient What is your living situation today?: I have a steady place to live Within the past 12 months, did the food you bought not last and you didn't have the money to get more?: Never true Within the past 12 months, did you worry whether your food would run out before you got money to buy more?: Never true Do you have trouble paying for medicines?: No Do you have trouble getting transportation to medical appointments?: No Do you have trouble paying your heating and electricity bill?: No Do you have trouble taking care of your child, family member or friend?: No Do you have trouble with day-to-day activities such as bathing, preparing meals, shopping, managing finances, etc.?: No Are you currently unemployed and looking for a job?: No Are you interested in more education?: No Please select the resources that you would like help with: None Currently or been in a relationship where the following occur: no concerns reported THRIVE Score: 0 DEBORA-7 AMB Questionnaire DEBORA-7 Date DEBORA - 7 assessed: 07/27/23 Feeling nervous, anxious, or on edge: 0 = Not at all Not being able to stop or control worryin = Not at all Worrying too much about different things: 0 = Not at all Trouble relaxin = Not at all Being so restless that it is hard to sit still: 0 = Not at all Becoming easily annoyed or irritable: 0 = Not at all Feeling afraid as if something awful might happen: 0 = Not at all Total DEBORA-7 score (0-4 normal; 5-9 mild; 10-14 moderate; 15-21 severe): 0 Source: Developed by Drs. Oliver Hawkins, Apolonia Hoffman, Mau Anderson and colleagues, with an educational delphine from [employer]. DEBORA-7 Assessment Billing DEBORA-7 Assessment Tool: DEBORA-7 Assessment 67750 Review of Systems Const Denies chills and Denies fever(s) ENT Denies epistaxis and Denies nasal discharge Card Denies chest pain Resp Denies chest congestion, Denies cough and Denies hemoptysis GI Denies diarrhea and Denies nausea Skin/Breast Denies rash Neuro Reports no additional complaints Psych Reports no additional complaints Endo Reports no additional complaints Physical exam (Primary Care) Vital Signs: Last Vital Signs Pulse 82 07/27/23 08:12 BP 140/58 H 07/27/23 08:12 Pulse Ox 99 07/27/23 08:12 Oxygen Delivery Method Room Air 07/27/23 08:12 BMI result Body Mass Index 32.9 Tobacco/Smoking Status: Tobacco use Status Tobacco use date assessed 06/06/22 07/27/23 08:15 Patient Tobacco Use Status Never used Tobacco 07/27/23 08:15 e-Cigarette/Vaping Use Never Used 07/27/23 08:15 PHQ-9: PHQ-9 Score PHQ-9: Total score 4 07/27/23 08:27 Depression Screening Interpretation: Negative Thrive Assessment: Date of Thrive Assessment Date Thrive assessed 07/27/23 07/27/23 08:27 Currently or been in a relationship where the following occur: no concerns reported Const General: cooperative, comfortable and no acute distress Orientation/consciousness: patient oriented x3 HENMT Head: Yes normocephalic Eyes General: appearance normal, both eyes and all related structures Neck Neck: Yes supple Resp Effort & Inspection: normal respiratory effort, no cough and no stridor Cardio Rhythm: regular rhythm Heart sounds: S1 normal heart sound present and S2 normal heart sound present Skin General skin exam: turgor normal Neuro General: patient oriented x3, tone normal and moves all extremities Extrem Right lower extremity: no edema Left lower extremity: no edema Assessment and Plan Assessment & Plan (1) Diabetes 1.5, managed as type 1: Code(s): E13.9 - Other specified diabetes mellitus without complications (2) senior living (current) use of insulin: Code(s): Z79.4 - buttermaker continuous churn (current) use of insulin (3) Hypertension, essential: Code(s): I10 - Essential (primary) hypertension (4) Lipid disorder: Code(s): E78.9 - Disorder of lipoprotein metabolism, unspecified (5) Obesity due to excess calories: Code(s): E66.09 - Other obesity due to excess calories Qualifiers: Body mass index: BMI 32.0-32.9 Obesity classification: adult class 1 (BMI 30 - 34.9) Serious obesity comorbidity presence: with serious comorbidity Qualified Code(s): E66.09 - Other obesity due to excess calories; Z68.32 - Body mass index [BMI] 32.0-32.9, adult (6) Benign positional vertigo: Code(s): H81.10 - Benign paroxysmal vertigo, unspecified ear Qualifiers: Laterality: unspecified laterality Qualified Code(s): H81.10 - Benign paroxysmal vertigo, unspecified ear Plan Patient is 78-year-old female came in today for her six-month follow-up appointment Patient is in her usual state of health except complaining of dizziness with the movement Which has been happening for the past 3 weeks. 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 Follow-up 6 months Orders: Orders Complete Blood Count Auto Diff Today E13.9 - Other specified diabetes mellitus without complications, E66.09 - Other obesity due to excess calories, E78.9 - Disorder of lipoprotein metabolism, unspecified, I10 - Essential (primary) hypertension, Z68.32 - Body mass index [BMI] 32.0-32.9, adult, Z79.4 - buttermaker continuous churn (current) use of insulin Comprehensive Met. Panel Today E13.9 - Other specified diabetes mellitus without complications, E66.09 - Other obesity due to excess calories, E78.9 - Disorder of lipoprotein metabolism, unspecified, I10 - Essential (primary) hypertension, Z68.32 - Body mass index [BMI] 32.0-32.9, adult, Z79.4 - senior living (current) use of insulin LDL Cholesterol Direct Today E13.9 - Other specified diabetes mellitus without complications, E66.09 - Other obesity due to excess calories, E78.9 - Disorder of lipoprotein metabolism, unspecified, I10 - Essential (primary) hypertension, Z68.32 - Body mass index [BMI] 32.0-32.9, adult, Z79.4 - buttermaker continuous churn (current) use of insulin Hemoglobin A1c Today E13.9 - Other specified diabetes mellitus without complications, E66.09 - Other obesity due to excess calories, E78.9 - Disorder of lipoprotein metabolism, unspecified, I10 - Essential (primary) hypertension, Z68.32 - Body mass index [BMI] 32.0-32.9, adult, Z79.4 - senior living (current) use of insulin Medications: Refilled lisinopril 20 mg PO DAILY 90 days 90 tabs 1RF simvastatin 40 mg PO BEDTIME 90 days 90 tabs 1RF Coding Level of Care Code Est Pt Level 4 (26188) Complex EM visit Add On G2211 Diagnoses Diabetes 1.5, managed as type 1 E13.9 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
== END 2023-07-27 08:28 | disposition home or self-care (01) ==
PROVIDERS: PCP Internal Medicine; Visit Provider Internal Medicine
DX: E13.9 Other specified diabetes mellitus without complications (principal); Z79.4 Long term (current) use of insulin; I10 Essential (primary) hypertension; E78.9 Disorder of lipoprotein metabolism, unspecified; E66.09 Other obesity due to excess calories; Z68.32 Body mass index [BMI] 32.0-32.9, adult; H81.13 Benign paroxysmal vertigo, bilateral
CPT/HCPCS: 99214; G2211

== ENCOUNTER 2023-07-27 08:29 | Outpatient (REF) | payer MEDICARE, MEDICAID, SELFPAY ==
[2023-07-27 11:23] LABS: MANUAL DIFF FLAG NO
[2023-07-27 11:31] LABS: Basophils Absolute Auto 0.1 X10*3/uL (0.0-0.2); Basophils Percent Auto 1.4 % (0-2); Eosinophils Absolute Auto 0.1 X10*3/uL (0.0-0.4); Eosinophils Percent Auto 2.1 % (0-4); Hematocrit 39.1 % (37.0-47.0); Hemoglobin 12.9 g/dl (12.0-16.0); Imm Gran Abs Auto 0.01 X10*3/uL (0.00-0.03); Imm Gran Pct Auto 0.2 % (0.0-0.4); Lymphocytes Absolute Auto 1.6 X10*3/uL (1.2-4.9); Lymphocytes Percent Auto 36.9 % (20-40); Mean Corpuscular Hemoglobin 29.9 pg (27.0-33.0); Mean Corpuscular Volume 90.7 fL (80.0-98.0); Mean Platelet Volume 11.9 fL (9.4-12.3); Monocytes Absolute Auto 0.4 X10*3/uL (0.1-1.2); Monocytes Percent Auto 8.8 % (2-11); Neutrophils Absolute Auto 2.2 x10*3/uL (2.0-8.3); Neutrophils Percent Auto 50.6 % (45-73); Platelet Count 161 X10*3/uL (160-400); Red Blood Count 4.31 X10*6/uL (4.20-5.50); Red Cell Distribution Width 14.5 % (11.0-16.0); White Blood Count 4.3 X10*3/uL (4.8-10.8)
[2023-07-27 11:37] LABS: Estimated Average Glucose 189 mg/dL; Hemoglobin A1c % 8.2 % (<6.0)
[2023-07-27 11:50] LABS: Alanine Aminotransferase 25 U/L (0-31); Albumin Level 4.1 g/dL (3.5-5.0); Alkaline Phosphatase 71 U/L (39-117); Anion Gap 11 (12-20); Aspartate Amino Transferase 28 U/L (5-31); Bilirubin Total 0.3 mg/dL (0.0-1.0); Blood Urea Nitrogen 18 mg/dL (9-16); Calcium 10.4 mg/dL (8.4-10.2); Carbon Dioxide 30 mmol/L (22-29); Chloride 106 mmol/L (96-108); Estimated Glomerular Filt Rate 59; Glucose Random 114 mg/dL (60-115); Potassium 4.1 mmol/L (3.3-5.1); Sodium 143 mmol/L (135-145); Total Protein 7.4 g/dL (6.5-8.0)
[2023-07-28 10:03] LABS: LDL Cholesterol Direct 71 mg/dL (<100)
== END 2023-07-27 08:30 | disposition home or self-care (01) ==
LOC: HO.HMGCLDS 08:29
PROVIDERS: PCP Internal Medicine; Visit Provider Internal Medicine
DX: E13.9 Other specified diabetes mellitus without complications (principal); I10 Essential (primary) hypertension; E78.9 Disorder of lipoprotein metabolism, unspecified; E66.09 Other obesity due to excess calories; Z68.32 Body mass index [BMI] 32.0-32.9, adult; Z79.4 Long term (current) use of insulin
CPT/HCPCS: 36415; 80053; 83036; 83721; 85025

== ENCOUNTER 2024-02-22 14:10 | Outpatient (AMB) | payer MEDICARE, MEDICAID, SELFPAY ==
[2024-02-22 14:12] VITALS: BP 134/58; PULSE 72; O2SAT 97; BMI 31.2
--- NOTE | 2024-02-22 14:12 | A.OFFPC_ITS ---
Vital Signs 02/22/24 14:12 Height 5 ft 2 in Weight 170 lb 8 oz BMI 31.2 BP 134/58 L Blood Pressure Location Rt brachial Position Sitting Pulse 72 Pulse Source Pulse Oximeter Pulse Oximetry (%) 97 Oxygen Delivery Method Room Air Intake Visit Reasons: 6 month follow up jamshid 01/28 Allergies [facility]ul[facility]lut[facility] [[facility] Adverse Reaction (Intermediate, Verified 02/22/24 14:12) Dizziness Medication List - Last Reconciled 02/22/24 by Keyla Fragoso MD aspirin (Adult Low Dose Aspirin) 81 mg PO DAILY insulin aspart U-100 (Novolog FlexPen U-100 Insulin aspart) 0 - 20 units subcut TID insulin glargine 45 units subcut lisinopril 20 mg PO DAILY 90 days meclizine 25 mg PO BID-TID PRN 30 days simvastatin 40 mg PO BEDTIME 90 days Tobacco use date assessed: 02/22/24 Fall risk assessment: No Falls in past year Last assessed Fall Risk: 02/22/24 Dental Screening Dental Screen Date: 02/22/24 Did you have a dental visit in the last 12 months?: Yes Did you have a dental problem in the last 6 months where you did not have access to dental care?: No Was dental information given to patient?: Patient has dentist HPI 6 month follow up jamshid 01/28 HPI Details - The patient is an 78-year-old female p resenting with Diabetes Mellitus Type 2. - History of elevated blood glucose leve ls occasionally, with no routine blood glucose checks. - Missed insulin dosage reported due to irregular meal timing. - Last blood test conducted in July for glucose monitoring. - Also, the patient presents for Hyperte nsion management. - No significant issues reported current ly. - Blood pressure recorded as 134 systoli c. - Additionally, the patient experiences Osteoarthritis. - Reports history of significant knee pa in managed with past intra-articular injections. - Current pain mild and managed with Tyl enol. - lipid disorder: Continue simvastatin 40 mg Medications - Tylenol for pain management due to Ost eoarthritis. Problem List - Diabetes Mellitus Type 2 - Hypertension - Osteoarthritis - noncompliance - lipid disorder Patient Instructions - Ensure regular meals to help manage di abetes and remember insulin administration. - Continue with Tylenol as needed for os teoarthritic pain. - Proceed with blood tests before prescr iption refills to monitor medication effects on kidney and liver function. - Monitor and report any significant melissa nges in health or symptoms to the physician. Follow-up early May Review of Systems - Musculoskeletal: Reports knee pain, mi ld, managed with Tylenol. - Gastrointestinal: Denies nausea and vo miting. - Cardiovascular: Denies chest pain. 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 Mother Cancer Maternal Grandfather No problems noted. Maternal Grandmother No problems noted. Paternal Grandfather No problems noted. Paternal Grandmother No problems noted. Brother No problems noted. Brother No problems noted. Daughter No problems noted. Daughter Breast cancer Social History Housing: House Alcohol intake: never Patient Tobacco Use Status: Never used Tobacco e-Cigarette/Vaping Use: Never Used service: No Current occupational status: retired Cognitive needs: No Hearing needs: No Vision needs: Yes Questionnaire PHQ-9 Over the last 2 weeks, how often have you been bothered by any of the following problems? 1. Little interest or pleasure in doing things: not at all 2. Feeling down, depressed, or hopeless: not at all 3. Trouble falling or staying asleep, or sleeping too much: several days 4. Feeling tired or having little energy: several days 5. Poor appetite or overeating: not at all 6. Feeling bad about yourself - or that you are a failure or have let yourself or your family down: not at all 7. Trouble concentrating on things, such as reading the newspaper or watching television: not at all 8. Moving or speaking so slowly that other people could have noticed. Or the opposite - being so fidgety or restless that you have been moving around a lot more than usual: more than half the days 9. Thoughts that you would be better off or of hurting yourself in some way: not at all Total score: 4 Depression Screening Interpretation: Negative Depression Screening Done: Yes 29621 - PHQ-9 Billing: Yes Source: Developed by Drs. Oliver Hawkins, Apolonia Hoffman, Mau Anderson and colleagues, with an educational delphine from [employer]. Thrive Questionnaire Date Thrive assessed: 02/22/24 I am a: Patient What is your living situation today?: I have a steady place to live Within the past 12 months, did the food you bought not last and you didn't have the money to get more?: Never true Within the past 12 months, did you worry whether your food would run out before you got money to buy more?: Never true Do you have trouble paying for medicines?: No Do you have trouble getting transportation to medical appointments?: No Do you have trouble paying your heating and electricity bill?: No Do you have trouble taking care of your child, family member or friend?: No Do you have trouble with day-to-day activities such as bathing, preparing meals, shopping, managing finances, etc.?: No Are you currently unemployed and looking for a job?: No Are you interested in more education?: No Please select the resources that you would like help with: None Currently or been in a relationship where the following occur: No concerns reported THRIVE Score: 0 AUDIT C Alcohol Use Questionnaire (AUDIT-C) 1. How often do you have a drink containing alcohol?: Never 3. How often do you have six or more drinks on one occasion?: Never Total Score: 0 Score Reviewed/Action Taken: Yes DEBOAR-7 AMB Questionnaire DEBORA-7 Date DEBORA - 7 assessed: 02/22/24 Feeling nervous, anxious, or on edge: 0 = Not at all Not being able to stop or control worryin = Not at all Worrying too much about different things: 0 = Not at all Trouble relaxin = Not at all Being so restless that it is hard to sit still: 0 = Not at all Becoming easily annoyed or irritable: 0 = Not at all Feeling afraid as if something awful might happen: 0 = Not at all Total DEBORA-7 score (0-4 normal; 5-9 mild; 10-14 moderate; 15-21 severe): 0 Source: Developed by Drs. Oliver Hawkins, Apolonia Hoffman, Mau Anderson and colleagues, with an educational delphine from [employer]. DEBORA-7 Assessment Billing DEBORA-7 Assessment Tool: DEBORA-7 Assessment 15650 Physical exam (Primary Care) Vital Signs: Last Vital Signs Pulse 72 02/22/24 14:12 BP 134/58 L 02/22/24 14:12 Pulse Ox 97 02/22/24 14:12 Oxygen Delivery Method Room Air 02/22/24 14:12 BMI result Body Mass Index 31.2 Tobacco/Smoking Status: Tobacco use Status Tobacco use date assessed 02/22/24 02/22/24 14:21 Patient Tobacco Use Status Never used Tobacco 02/22/24 14:13 e-Cigarette/Vaping Use Never Used 02/22/24 14:13 PHQ-9: PHQ-9 Score PHQ-9: Total score 4 02/22/24 14:33 Depression Screening Interpretation: Negative Thrive Assessment: Date of Thrive Assessment Date Thrive assessed 02/22/24 02/22/24 14:13 Currently or been in a relationship where the following occur: No concerns reported Coding Level of Care Code Est Pt Level 4 (25256) Diagnoses Diabetes 1.5, managed as type 1 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 Z79.4 Hypertension, essential I10 Lipid disorder E78.9 Additional Codes DEBORA-7 Assessment Billing - DEBORA-7 Assessment Tool: DEBORA-7 Assessment 08459 ([id number]) PHQ-9 - 07654 - PHQ-9 Billing: Yes ([id number]) Assessment & Plan Assessment & Plan (1) Diabetes 1.5, managed as type 1: Code(s): E13.9 - Other specified diabetes mellitus without complications Category: Medical (2) 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 - History of elevated blood glucose levels occasionally, with no routine blood glucose checks. - Missed insulin dosage reported due to irregular meal timing. - Last blood test conducted in July for glucose monitoring. - Also, the patient presents for Hypertension management. - No significant issues reported currently. - Blood pressure recorded as 134 systolic. - Additionally, the patient experiences Osteoarthritis. - Reports history of significant knee pain managed with past intra-articular injections. - Current pain mild and managed with Tylenol. - lipid disorder: Continue simvastatin 40 mg Medications - Tylenol for pain management due to Osteoarthritis. Problem List - Diabetes Mellitus Type 2 - Hypertension - Osteoarthritis - noncompliance - lipid disorder Patient Instructions - Ensure regular meals to help manage diabetes and remember insulin administration. - Continue with Tylenol as needed for osteoarthritic pain. - Proceed with blood tests before prescription refills to monitor medication effects on kidney and liver function. - Monitor and report any significant changes in health or symptoms to the physician. 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
== END 2024-02-22 14:32 | disposition home or self-care (01) ==
PROVIDERS: PCP Internal Medicine; Visit Provider Internal Medicine
DX: E13.9 Other specified diabetes mellitus without complications (principal); Z79.4 Long term (current) use of insulin; I10 Essential (primary) hypertension; E78.9 Disorder of lipoprotein metabolism, unspecified

== ENCOUNTER 2024-02-22 14:10 | Outpatient (REF) | payer MEDICARE, MEDICAID, SELFPAY ==
[2024-02-22 16:05] LABS: MANUAL DIFF FLAG NO
[2024-02-22 16:09] LABS: Basophils Absolute Auto 0.1 X10*3/uL (0.0-0.2); Basophils Percent Auto 1.1 % (0-2); Eosinophils Absolute Auto 0.1 X10*3/uL (0.0-0.4); Hematocrit 38.2 % (37.0-47.0); Hemoglobin 12.6 g/dl (12.0-16.0); Imm Gran Abs Auto 0.01 X10*3/uL (0.00-0.03); Imm Gran Pct Auto 0.2 % (0.0-0.4); Lymphocytes Absolute Auto 1.8 X10*3/uL (1.2-4.9); Lymphocytes Percent Auto 37.8 % (20-40); Mean Corpuscular Hemoglobin 29.2 pg (27.0-33.0); Mean Corpuscular Volume 88.6 fL (80.0-98.0); Mean Platelet Volume 11.6 fL (9.4-12.3); Monocytes Absolute Auto 0.5 X10*3/uL (0.1-1.2); Monocytes Percent Auto 10.4 % (2-11); Neutrophils Absolute Auto 2.3 x10*3/uL (2.0-8.3); Neutrophils Percent Auto 47.5 % (45-73); Platelet Count 171 X10*3/uL (160-400); Red Blood Count 4.31 X10*6/uL (4.20-5.50); Red Cell Distribution Width 14.3 % (11.0-16.0); White Blood Count 4.7 X10*3/uL (4.8-10.8)
[2024-02-22 16:40] LABS: Estimated Average Glucose 246 mg/dL; Hemoglobin A1C 299.1638 umol/L; Hemoglobin A1c % 10.2 % (<6.0); Total Hemoglobin (HGBA1C) 3389.0162 umol/L
[2024-02-22 16:47] LABS: Creatinine Urine 241.34 mg/dL; Microalbum/Creatinine Ratio Ur 15.7 ug/mg cr (<30)
[2024-02-22 16:51] LABS: Alanine Aminotransferase 45 U/L (0-31); Albumin Level 4.1 g/dL (3.5-5.0); Alkaline Phosphatase 91 U/L (39-117); Anion Gap 7 (12-20); Aspartate Amino Transferase 25 U/L (5-31); Bilirubin Total 0.3 mg/dL (0.0-1.0); Blood Urea Nitrogen 19 mg/dL (9-16); Calcium 9.6 mg/dL (8.4-10.2); Carbon Dioxide 29 mmol/L (22-29); Chloride 105 mmol/L (96-108); Estimated Glomerular Filt Rate 55; Glucose Random 250 mg/dL (60-115); Potassium 4.2 mmol/L (3.3-5.1); Sodium 137 mmol/L (135-145); Total Protein 7.6 g/dL (6.5-8.0)
[2024-02-25 05:19] LABS: LDL Cholesterol Direct 73 mg/dL (<100)
== END 2024-02-22 14:11 | disposition home or self-care (01) ==
LOC: HO.HMGCLDS 14:10
PROVIDERS: PCP Internal Medicine; Visit Provider Internal Medicine
DX: E13.9 Other specified diabetes mellitus without complications (principal); I10 Essential (primary) hypertension; E78.9 Disorder of lipoprotein metabolism, unspecified; Z79.4 Long term (current) use of insulin; Z79.899 Other long term (current) drug therapy
CPT/HCPCS: 36415; 80053; 82043; 82570; 83036; 83721; 85025; 96127; 99212

== ENCOUNTER 2024-05-13 14:46 | Outpatient (AMB) | payer MEDICARE, MEDICAID, SELFPAY ==
[2024-05-13 14:50] VITALS: BP 104/56; PULSE 78; RESP 18; O2SAT 99; BMI 31.6
--- NOTE | 2024-05-13 14:50 | A.OFFPC_ITS ---
Vital Signs 05/13/24 14:50 Height 5 ft 2 in Weight 173 lb BMI 31.6 BP 104/56 L Blood Pressure Location Rt brachial Position Sitting Respiration 18 Pulse 78 Pulse Source Pulse Oximeter Pulse Oximetry (%) 99 Oxygen Delivery Method Room Air Intake Visit Reasons: 3 month follow up Allergies dulaglutide [From [facility]] Adverse Reaction (Intermediate, Verified 05/13/24 14:50) Dizziness Medication List - Last Reconciled 05/13/24 by Keyla Fragoso MD aspirin (Adult Low Dose Aspirin) 81 mg PO DAILY insulin aspart U-100 (Novolog FlexPen U-100 Insulin aspart) 0 - 20 units subcut TID insulin glargine 45 units subcut lisinopril 20 mg PO DAILY 90 days meclizine 25 mg PO BID-TID PRN 30 days semaglutide (Ozempic) mg subcut simvastatin 40 mg PO BEDTIME 90 days Tobacco use date assessed: 05/13/24 Fall risk assessment: No Falls in past year Last assessed Fall Risk: 05/13/24 Dental Screening Dental Screen Date: 02/22/24 HPI 3 month follow up HPI Details History - bulleted - The patient is an 79 year old female p resenting with a follow-up for diabetes management. - Significant history of Type 2 Diabetes Mellitus, previously presented with elevated hemoglobin A1c level of 10.2 as of February, indicating poor glycemic control. - Chronic Kidney Disease noted to have w orsened, likely secondary to uncontrolled diabetes, affecting renal function as discussed in February after kidney function tests. - Hyperlipidemia is being managed with m sherri. - The patient's blood pressure is genera lly well-managed, although low on the date of the visit. - Missed insulin dosage reported due to irregular meal timing. - Additionally, the patient experiences Osteoarthritis. - Reports history of significant knee pa in managed with past intra-articular injections. - Current pain mild and managed with Tyl enol. - BMI elevated to 31.6 Medications - simvastatin 40 mg and lisinopril 20 mg from this office - Tylenol for pain management due to Ost eoarthritis. - diabetes management through [facility] e ndocrinology Problem List - Type 2 Diabetes Mellitus with Poor Gly cemic Control - Chronic Kidney Disease likely secondar y to Diabetes - Hyperlipidemia - Hypertension - Osteoarthritis - obesity Diagnostic results - Labs: Hemoglobin A1c recorded at 10.2 in February. - Tests: Kidney function test results in dicated worsening status due to diabetes. With GFR 55 in February of 2024 Patient Instructions - Control blood sugar levels to prevent worsening kidney damage. - Undergo ordered blood tests for update d kidney function assessment. - Provide contact information to the lidia everett doctor as discussed. - Discuss any dizziness, lightheadedness , or any other concerning symptoms immediately. - Ensure regular meals to help manage di abetes and remember insulin administration. - Continue with Tylenol as needed for os teoarthritic pain. - Monitor and report any significant melissa nges in health or symptoms to the physician. - continue medications no changes today Last printed and handed to daughter, present that to patient's fish roe technician Review of Systems General: No fever no chills neurological: No headaches no dizziness ear nose throat: No sore throat no hearing difficulty no ear pain cardiovascular: No syncope, no chest pain, no palpitations gastrointestinal: No nausea vomiting or diarrhea endocrine: No polyuria polydipsia no heat intolerance genitourinary: No dysuria skin: No new complaints Physical Exam general: No acute distress HEENT: No acute findings neck: Supple respiratory system: Able to talk in full sentences, no audible wheeze no stridor cardiovascular: S1-S2, heart is okay gastrointestinal: No pain extremities: Arthritic pain in the knee SPORTS PHOTOGRAPHER: Alert awake oriented x3 motor sensory intact skin: Normal turgor, no swelling PFSH Medical History Uncontrolled diabetes mellitus Non-compliant behavior Lipid disorder Hypertension, essential nursing home (current) use of insulin Diabetes 1.5, managed as type 1 Surgical History History of cataract surgery History of surgery on wrist History of hysterectomy Family History Father No problems noted. Mother Cancer Maternal Grandfather No problems noted. Maternal Grandmother No problems noted. Paternal Grandfather No problems noted. Paternal Grandmother No problems noted. Brother No problems noted. Brother No problems noted. Daughter No problems noted. Daughter Breast cancer Social History Housing: House Alcohol intake: never Patient Tobacco Use Status: Never used Tobacco e-Cigarette/Vaping Use: Never Used service: No Current occupational status: retired Cognitive needs: No Hearing needs: No Vision needs: Yes Questionnaire Thrive Questionnaire Date Thrive assessed: 02/22/24 DEBORA-7 AMB Questionnaire DEBORA-7 Date DEBORA - 7 assessed: 02/22/24 Source: Developed by Drs. Oliver Hawkins, Apolonia Hoffman, Mau Anderson and colleagues, with an educational delphine from [employer]. Physical exam (Primary Care) Vital Signs: Last Vital Signs Pulse 78 05/13/24 14:50 Resp 18 05/13/24 14:50 BP 104/56 L 05/13/24 14:50 Pulse Ox 99 05/13/24 14:50 Oxygen Delivery Method Room Air 05/13/24 14:50 BMI result Body Mass Index 31.6 Tobacco/Smoking Status: Tobacco use Status Tobacco use date assessed 05/13/24 05/13/24 14:55 Patient Tobacco Use Status Never used Tobacco 05/13/24 14:51 e-Cigarette/Vaping Use Never Used 05/13/24 14:51 Thrive Assessment: Date of Thrive Assessment Date Thrive assessed 02/22/24 05/13/24 14:51 Coding Level of Care Code Est Pt Level 4 (29433) Complex EM visit Add On G2211 Diagnoses Diabetes 1.5, managed as type 1 E13.9 nursing home (current) use of insulin Z79.4 Hypertension, essential I10 Lipid disorder E78.9 Nephropathy N28.9 Class 1 obesity due to excess calories with serious comorbidity and body mass index (BMI) of 32.0 to 32.9 in adult E66.09; Z68.32 Obesity classification: adult class 1 (BMI 30 - 34.9) Serious obesity comorbidity presence: with serious comorbidity Body mass index: BMI 32.0-32.9 Assessment & Plan Assessment & Plan (1) Diabetes 1.5, managed as type 1: Code(s): E13.9 - Other specified diabetes mellitus without complications Category: Medical (2) 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: Code(s): Z79.4 - nursing home (current) use of insulin Category: Medical (3) Hypertension, essential: Code(s): I10 - Essential (primary) hypertension Category: Medical (4) Lipid disorder: Code(s): E78.9 - Disorder of lipoprotein metabolism, unspecified Category: Medical (5) Nephropathy: Code(s): N28.9 - Disorder of kidney and ureter, unspecified Category: Medical (6) Obesity due to excess calories: Code(s): E66.09 - Other obesity due to excess calories Category: Medical Qualifiers: Obesity classification: adult class 1 (BMI 30 - 34.9) Serious obesity comorbidity presence: with serious comorbidity Body mass index: BMI 32.0-32.9 Qualified Code(s): E66.09 - Other obesity due to excess calories; Z68.32 - Body mass index [BMI] 32.0-32.9, adult Plan History - bulleted - The patient is an 79 year old female presenting with a follow-up for diabetes management. - Significant history of Type 2 Diabetes Mellitus, previously presented with elevated hemoglobin A1c level of 10.2 as of February, indicating poor glycemic control. - Chronic Kidney Disease noted to have worsened, likely secondary to uncontrolled diabetes, affecting renal function as discussed in February after kidney function tests. - Hyperlipidemia is being managed with medication. - The patient's blood pressure is generally well-managed, although low on the date of the visit. - Missed insulin dosage reported due to irregular meal timing. - Additionally, the patient experiences Osteoarthritis. - Reports history of significant knee pain managed with past intra-articular injections. - Current pain mild and managed with Tylenol. - BMI elevated to 31.6 Medications - simvastatin 40 mg and lisinopril 20 mg from this office - Tylenol for pain management due to Osteoarthritis. - diabetes management through [facility] endocrinology Problem List - Type 2 Diabetes Mellitus with Poor Glycemic Control - Chronic Kidney Disease likely secondary to Diabetes - Hyperlipidemia - Hypertension - Osteoarthritis - obesity Diagnostic results - Labs: Hemoglobin A1c recorded at 10.2 in February. - Tests: Kidney function test results indicated worsening status due to diabetes. With GFR 55 in February of 2024 Patient Instructions - Control blood sugar levels to prevent worsening kidney damage. - Undergo ordered blood tests for updated kidney function assessment. - Provide contact information to the diabetes doctor as discussed. - Discuss any dizziness, lightheadedness, or any other concerning symptoms immediately. - Ensure regular meals to help manage diabetes and remember insulin administration. - Continue with Tylenol as needed for osteoarthritic pain. - Monitor and report any significant changes in health or symptoms to the physician. 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 LDL Cholesterol Direct Today E13.9 - Other specified diabetes mellitus without complications, E78.9 - Disorder of lipoprotein metabolism, unspecified, I10 - Essential (primary) hypertension, N28.9 - Disorder of kidney and ureter, unspecified, Z79.4 - 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 Complete Blood Count Auto Diff Today E13.9 - Other specified diabetes mellitus without complications, E78.9 - Disorder of lipoprotein metabolism, unspecified, I10 - Essential (primary) hypertension, N28.9 - Disorder of kidney and ureter, unspecified, Z79.4 - nursing home (current) use of insulin Comprehensive Met. Panel Today E13.9 - Other specified diabetes mellitus without complications, E78.9 - Disorder of lipoprotein metabolism, unspecified, I10 - Essential (primary) hypertension, N28.9 - Disorder of kidney and ureter, unspecified, Z79.4 - 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 Microalbumin, Random (w Creat) Today E13.9 - Other specified diabetes mellitus without complications, E78.9 - Disorder of lipoprotein metabolism, unspecified, I10 - Essential (primary) hypertension, N28.9 - Disorder of kidney and ureter, unspecified, Z79.4 - 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
== END 2024-05-13 15:23 | disposition home or self-care (01) ==
LOC: HO.HMCC 14:46
PROVIDERS: PCP Internal Medicine; Visit Provider Internal Medicine
DX: E13.9 Other specified diabetes mellitus without complications (principal); Z79.4 Long term (current) use of insulin; I10 Essential (primary) hypertension; E78.9 Disorder of lipoprotein metabolism, unspecified; N28.9 Disorder of kidney and ureter, unspecified; E66.09 Other obesity due to excess calories; Z68.32 Body mass index [BMI] 32.0-32.9, adult

== ENCOUNTER 2024-05-13 14:46 | Outpatient (REF) | payer MEDICARE, MEDICAID, SELFPAY ==
[2024-05-13 16:10] LABS: MANUAL DIFF FLAG NO
[2024-05-13 16:13] LABS: Basophils Percent Auto 0.7 % (0-2); Eosinophils Absolute Auto 0.1 X10*3/uL (0.0-0.4); Eosinophils Percent Auto 1.2 % (0-4); Hematocrit 35.7 % (37.0-47.0); Hemoglobin 12.1 g/dl (12.0-16.0); Imm Gran Abs Auto 0.01 X10*3/uL (0.00-0.03); Imm Gran Pct Auto 0.2 % (0.0-0.4); Lymphocytes Percent Auto 35.3 % (20-40); Mean Corpuscular HGB Conc 33.9 g/dl (31.0-35.0); Mean Corpuscular Hemoglobin 29.8 pg (27.0-33.0); Mean Corpuscular Volume 87.9 fL (80.0-98.0); Mean Platelet Volume 10.8 fL (9.4-12.3); Monocytes Absolute Auto 0.6 X10*3/uL (0.1-1.2); Monocytes Percent Auto 10.3 % (2-11); Neutrophils Percent Auto 52.3 % (45-73); Platelet Count 156 X10*3/uL (160-400); Red Blood Count 4.06 X10*6/uL (4.20-5.50); Red Cell Distribution Width 14.4 % (11.0-16.0); White Blood Count 5.6 X10*3/uL (4.8-10.8)
[2024-05-13 16:35] LABS: Estimated Average Glucose 194 mg/dL; Hemoglobin A1C 215.6705 umol/L; Hemoglobin A1c % 8.4 % (<6.0); Total Hemoglobin (HGBA1C) 3156.3286 umol/L
[2024-05-13 16:46] LABS: Creatinine Urine 310.89 mg/dL; Microalbum/Creatinine Ratio Ur 9.9 ug/mg cr (<30)
[2024-05-13 16:48] LABS: Alanine Aminotransferase 50 U/L (0-31); Alkaline Phosphatase 79 U/L (39-117); Anion Gap 8 (12-20); Aspartate Amino Transferase 39 U/L (5-31); Bilirubin Total 0.2 mg/dL (0.0-1.0); Blood Urea Nitrogen 19 mg/dL (9-16); Calcium 9.5 mg/dL (8.4-10.2); Carbon Dioxide 29 mmol/L (22-29); Chloride 109 mmol/L (96-108); Estimated Glomerular Filt Rate 53; Glucose Random 116 mg/dL (60-115); Potassium 4.3 mmol/L (3.3-5.1); Sodium 142 mmol/L (135-145); Total Protein 7.1 g/dL (6.5-8.0)
[2024-05-14 09:34] LABS: LDL Cholesterol Direct 60 mg/dL (<100)
== END 2024-05-13 14:47 | disposition home or self-care (01) ==
LOC: HO.HMGCLDS 14:46
PROVIDERS: PCP Internal Medicine; Visit Provider Internal Medicine
DX: E13.22 Other specified diabetes mellitus with diabetic chronic kidney disease (principal); I12.9 Hypertensive chronic kidney disease with stage 1 through stage 4 chronic kidney disease, or unspecified chronic kidney disease; N18.9 Chronic kidney disease, unspecified; E78.5 Hyperlipidemia, unspecified; E66.09 Other obesity due to excess calories; Z68.32 Body mass index [BMI] 32.0-32.9, adult; Z79.4 Long term (current) use of insulin
CPT/HCPCS: 36415; 80053; 82043; 82570; 83036; 83721; 85025; 99212

== ENCOUNTER 2024-08-12 12:06 | Outpatient (AMB) | payer MEDICARE, MEDICAID, SELFPAY ==
[2024-08-12 12:09] VITALS: BP 112/60; PULSE 80; RESP 18; TEMP 36.6; O2SAT 96; BMI 31.6
--- NOTE | 2024-08-12 12:09 | A.OFFPC_ITS ---
Vital Signs 08/12/24 12:09 Height 5 ft 2 in Weight 173 lb BMI 31.6 BP 112/60 Blood Pressure Location Lt brachial Position Sitting Respiration 18 Pulse 80 Pulse Source Pulse Oximeter Temp 97.8 F Temp Source Oral Pulse Oximetry (%) 96 Oxygen Delivery Method Room Air Intake Visit Reasons: 3m follow up Allergies dulaglutide (From [facility]) Adverse Reaction (Intermediate, Verified 08/12/24 12:10) Dizziness Medication List - Last Reconciled 08/12/24 by Keyla Fragoso MD aspirin (Adult Low Dose Aspirin) 81 mg PO DAILY insulin aspart U-100 (Novolog FlexPen U-100 Insulin aspart) 0 - 20 units subcut TID insulin glargine 45 units subcut lisinopril 20 mg PO DAILY 90 days meclizine 25 mg PO BID-TID PRN 30 days semaglutide (Ozempic) mg subcut simvastatin 40 mg PO BEDTIME 90 days Tobacco use date assessed: 08/12/24 Fall risk assessment: No Falls in past year Last assessed Fall Risk: 08/12/24 Dental Screening Dental Screen Date: 02/22/24 HPI 3m follow up HPI Details History - The patient is an 79-year-old female p resenting with elevated blood glucose levels. - Blood glucose has been inconsistently managed, with fluctuations described as sometimes low and sometimes high. - A specific low reading of 70 mg/dL was mentioned this morning which affected medication timing. - dietary influences and forgetfulness in medication intake were contributing factors. - Concerns were raised about the impact of glucose levels on kidney function. - The patient reports occasional dizzine ss and increased fatigue, which appears exacerbated by heat. - Past laboratory results from May ind icated a gradual decline in kidney function, with creatinine clearance decreasing from a previous normal of 60 mL/min to 53 mL/min. - The patient has observed a stable weig ht around 173 pounds, slightly decreasing from previous measurements, indicating a slight fluctuation from 180 pounds last year to 170.8 pounds in February. Medical History: - Diabetes Mellitus - Hypertension - Dyslipidemia - Nephropathy Medications: - Lisinopril for hypertension - Simvastatin for dyslipidemia - insulin managed by endocrinology Social History: - Current nutritional intake includes th e monitoring of sweets, with an expressed attempt to reduce intake of sweet rice cakes. - Self-reported attempts to manage weigh t without an overt exercise plan mentioned. - Expresses a fear of the physical limit ations that may arise with unmanaged diabetes complications. Diagnostic Results: - Labs: Hemoglobin A1c is 9.0 today Problem List - Diabetes Mellitus with poor glucose co ntrol - Hypertension - Dyslipidemia - Renal function decline - obesity Patient Instructions - Monitor blood sugar levels regularly a nd report abnormal readings. - labs to be done today. - Reduce intake of sweets, including swe et rice cakes, to aid in managing weight and blood sugar levels. - Ensure adherence to diabetes medicatio ns and take them as instructed. By your packaging inspector - Schedule follow-up visit in November to reassess kidney function and blood sugar control. Review of Systems - General: No fever no chills - Neurological: No headaches no dizziness - Ear nose throat: No sore throat no hearing difficulty no ear pain - Cardiovascular: No syncope, no chest pain, no palpitations - Gastrointestinal: No nausea vomiting or diarrhea - Endocrine: No polyuria polydipsia no heat intolerance - Genitourinary: No dysuria , no blood in urine Physical Exam General: Appears tired, no acute distress HEENT: No acute findings Neck: Supple Respiratory system: Able to talk in full sentences, no audible wheeze Cardiovascular: S1-S2 regular in rate and rhythm, blood pressure excellent Gastrointestinal: No pain Extremities: No new findings WAREHOUSE REPRESENTATIVE: Alert awake oriented x3 motor sensory intact Skin: Normal turgor [facility] Medical History Uncontrolled diabetes mellitus Non-compliant behavior Lipid disorder Hypertension, essential [facility] (current) use of insulin Diabetes 1.5, managed as type 1 Surgical History History of cataract surgery History of surgery on wrist History of hysterectomy Family History Father No problems noted. Mother Cancer Maternal Grandfather No problems noted. Maternal Grandmother No problems noted. Paternal Grandfather No problems noted. Paternal Grandmother No problems noted. Brother No problems noted. Brother No problems noted. Daughter No problems noted. Daughter Breast cancer Social History Housing: House Alcohol intake: never Patient Tobacco Use Status: Never used Tobacco e-Cigarette/Vaping Use: Never Used service: No Current occupational status: retired Cognitive needs: No Hearing needs: No Vision needs: Yes Questionnaire Thrive Questionnaire Date Thrive assessed: 02/22/24 DEBORA-7 AMB Questionnaire DEBORA-7 Date DEBORA - 7 assessed: 02/22/24 Source: Developed by Drs. Oliver Hawkins, Apolonia Hoffman, Mau Anderson and colleagues, with an educational delphine from [employer]. Physical exam (Primary Care) Vital Signs: Last Vital Signs Temp 97.8 F 08/12/24 12:09 Pulse 80 08/12/24 12:09 Resp 18 08/12/24 12:09 BP 112/60 08/12/24 12:09 Pulse Ox 96 08/12/24 12:09 Oxygen Delivery Method Room Air 08/12/24 12:09 BMI result Body Mass Index 31.6 Tobacco/Smoking Status: Tobacco use Status Tobacco use date assessed 08/12/24 08/12/24 12:12 Patient Tobacco Use Status Never used Tobacco 08/12/24 12:12 e-Cigarette/Vaping Use Never Used 08/12/24 12:12 Thrive Assessment: Date of Thrive Assessment Date Thrive assessed 02/22/24 08/12/24 12:12 Results AMB Hemoglobin A1c AMB Hemoglobin A1c 9.0 % Last Edit by TRACY Land on 08/12/24 12:3 3 Coding Level of Care Code Est Pt Level 4 (20177) Complex EM visit Add On G2211 Diagnoses Hypertension, essential I10 Lipid disorder E78.9 Diabetes 1.5, managed as type 1 E13.9 Nephropathy N28.9 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 insulin Z79.4 Class 1 obesity due to excess calories with serious comorbidity and body mass index (BMI) of 32.0 to 32.9 in adult E66.09; Z68.32 Body mass index: BMI 32.0-32.9 Obesity classification: adult class 1 (BMI 30 - 34.9) Serious obesity comorbidity presence: with serious comorbidity Assessment & Plan Assessment & Plan (1) Hypertension, essential: Code(s): I10 - Essential (primary) hypertension Category: Medical (2) Lipid disorder: Code(s): E78.9 - Disorder of lipoprotein metabolism, unspecified Category: Medical (3) Diabetes 1.5, managed as type 1: Code(s): E13.9 - Other specified diabetes mellitus without complications Category: Medical (4) Nephropathy: Code(s): N28.9 - Disorder of kidney and ureter, unspecified Category: Medical (5) [facility] (current) use of insulin: Code(s): Z79.4 - 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 insulin Category: Medical (6) Obesity due to excess calories: Code(s): E66.09 - Other obesity due to excess calories Category: Medical Qualifiers: Body mass index: BMI 32.0-32.9 Obesity classification: adult class 1 (BMI 30 - 34.9) Serious obesity comorbidity presence: with serious comorbidity Qualified Code(s): E66.09 - Other obesity due to excess calories; Z68.32 - Body mass index [BMI] 32.0-32.9, adult Plan Ongoing care/follow-up - The patient is an 79-year-old female presenting with elevated blood glucose levels. - Blood glucose has been inconsistently managed, with fluctuations described as sometimes low and sometimes high. - A specific low reading of 70 mg/dL was mentioned this morning which affected medication timing. - dietary influences and forgetfulness in medication intake were contributing factors. - Concerns were raised about the impact of glucose levels on kidney function. - The patient reports occasional dizziness and increased fatigue, which appears exacerbated by heat. - Past laboratory results from May indicated a gradual decline in kidney function, with creatinine clearance decreasing from a previous normal of 60 mL/min to 53 mL/min. - The patient has observed a stable weight around 173 pounds, slightly decreasing from previous measurements, indicating a slight fluctuation from 180 pounds last year to 170.8 pounds in February. Medical History: - Diabetes Mellitus - Hypertension - Dyslipidemia - Nephropathy Medications: - Lisinopril for hypertension - Simvastatin for dyslipidemia - insulin managed by endocrinology Social History: - Current nutritional intake includes the monitoring of sweets, with an expressed attempt to reduce intake of sweet rice cakes. - Self-reported attempts to manage weight without an overt exercise plan mentioned. - Expresses a fear of the physical limitations that may arise with unmanaged diabetes complications. Diagnostic Results: - Labs: Hemoglobin A1c is 9.0 today Problem List - Diabetes Mellitus with poor glucose control - Hypertension - Dyslipidemia - Renal function decline - obesity Patient Instructions - Monitor blood sugar levels regularly and report abnormal readings. - labs to be done today. - Reduce intake of sweets, including sweet rice cakes, to aid in managing weight and blood sugar levels. - Ensure adherence to diabetes medications and take them as instructed. By your packaging inspector - Schedule follow-up visit in November to reassess kidney function and blood sugar control. Orders: Orders AMB Hemoglobin A1c Today Z13.9 - Encounter for screening, unspecified Comprehensive Met. Panel Today E13.9 - Other specified diabetes mellitus without complications, E78.9 - Disorder of lipoprotein metabolism, unspecified, I10 - Essential (primary) hypertension, N28.9 - Disorder of kidney and ureter, unspecified
== END 2024-08-12 12:30 | disposition home or self-care (01) ==
LOC: HO.HMCC 12:07
PROVIDERS: PCP Internal Medicine; Visit Provider Internal Medicine
DX: I10 Essential (primary) hypertension (principal); Z79.4 Long term (current) use of insulin; E13.9 Other specified diabetes mellitus without complications; E78.9 Disorder of lipoprotein metabolism, unspecified; N28.9 Disorder of kidney and ureter, unspecified; E66.09 Other obesity due to excess calories; Z68.32 Body mass index [BMI] 32.0-32.9, adult

== ENCOUNTER 2024-08-12 12:06 | Outpatient (REF) | payer MEDICARE, MEDICAID, SELFPAY ==
[2024-08-12 17:53] LABS: Alanine Aminotransferase 37 U/L (0-31); Albumin Level 4.0 g/dL (3.5-5.0); Alkaline Phosphatase 67 U/L (39-117); Anion Gap 13 (12-20); Aspartate Amino Transferase 36 U/L (5-31); Blood Urea Nitrogen 17 mg/dL (9-16); Calcium 9.2 mg/dL (8.4-10.2); Carbon Dioxide 25 mmol/L (22-29); Chloride 105 mmol/L (96-108); Estimated Glomerular Filt Rate 50; Potassium 4.5 mmol/L (3.3-5.1); Sodium 138 mmol/L (135-145); Total Protein 6.7 g/dL (6.5-8.0)
== END 2024-08-12 12:07 | disposition home or self-care (01) ==
LOC: HO.HMGCLDS 12:06
PROVIDERS: PCP Internal Medicine; Visit Provider Internal Medicine
DX: I10 Essential (primary) hypertension (principal); E78.9 Disorder of lipoprotein metabolism, unspecified; E66.09 Other obesity due to excess calories; Z68.32 Body mass index [BMI] 32.0-32.9, adult; E13.21 Other specified diabetes mellitus with diabetic nephropathy; Z79.4 Long term (current) use of insulin; Z79.899 Other long term (current) drug therapy
CPT/HCPCS: 36415; 80053; 83036; 99212

== ENCOUNTER 2024-11-12 14:59 | Outpatient (AMB) | payer MEDICARE, MEDICAID, SELFPAY ==
--- NOTE | 2024-11-12 15:02 | MHC.PC.OV ---
Vital Signs 11/12/24 15:05 Height 5 ft 2 in Weight 171 lb BMI 31.3 BP 138/70 Blood Pressure Location Lt brachial Position Sitting Pulse 78 Pulse Source Pulse Oximeter Pulse Oximetry (%) 98 Intake Visit Reasons: 3m follow up Allergies dulaglutide (From [facility]) Adverse Reaction (Intermediate, Verified 11/12/24 15:05) Dizziness Medication List - Last Reconciled 11/12/24 by Keyla Fragoso MD aspirin (Adult Low Dose Aspirin) 81 mg PO DAILY blood sugar diagnostic (FreeStyle Lite Strips) As directed insulin aspart U-100 (Novolog FlexPen U-100 Insulin aspart) 20 units subcut QPM insulin glargine-yfgn (Semglee (insulin glargine-yfgn) Pen) 34 units subcut DAILY lisinopril 20 mg PO DAILY 90 days meclizine 25 mg PO BID-TID PRN 30 days pen needle, diabetic (Ultra-Fine Pen Needle) As directed semaglutide (Ozempic) mg subcut simvastatin 40 mg PO BEDTIME 90 days Tobacco use date assessed: 08/12/24 Dental Screening Dental Screen Date: 02/22/24 HPI 3m follow up HPI Details History of Present Illness The patient is an 79-year-old female presenting for diabetes management and blood pressure control. Diabetes Mellitus: - The patient has been followed by endocrinology at a medical center. - Hemoglobin A1c levels noted at various intervals: 8.8 in March, 8.1 in June, 8.4 in September. - There has been a fluctuation without achieving optimal control, as levels have remained above the target range of 7. - The patient's dietary management has been addressed, and she is aware of dietary instructions provided by her group practice pediatrician. - The patient is advised to continue working on dietary changes and increasing physical activity. Hypertension: - Blood pressure is controlled under current treatment with lisinopril. - The patient is advised to maintain her medication regimen. Chronic Kidney Disease (Nephropathy): - The last recorded Glomerular Filtration Rate (GFR) was 50 in August. - The recommendation has been made to repeat kidney function tests to monitor stability. Medical History: - Diabetes mellitus - Hypertension - Hyperlipidemia - Chronic kidney disease (mild nephropathy). Medications: - Lisinopril 20 mg for hypertension - Simvastatin 40 mg for hyperlipidemia - Diabetic medications managed by endocrinology Social History: - Participating in exercise regimen as advised - Adheres to dietary recommendations from the group practice pediatrician - Efforts to manage weight are ongoing Problem List - Type 2 Diabetes Mellitus - Essential Hypertension - Hyperlipidemia - Chronic Kidney Disease (mild nephropathy) Plan - Monitor blood pressure and continue lisinopril for hypertension control; blood pressure is currently under good control. - Continue simvastatin for management of hyperlipidemia. - Follow dietary guidance from endocrinology and maintain physical activity to help manage diabetes; aim to reduce Hemoglobin A1c to target range. - Reassess kidney function with laboratory tests; current status noted with a GFR of 50. Monitor for progression of nephropathy. - Refills for current medications, excluding diabetic prescriptions, will be provided. Follow-up 4 months Review of Systems - General: No fever no chills - Neurological: No headaches no dizziness - Ear nose throat: No sore throat no hearing difficulty no ear pain - Cardiovascular: No syncope, no chest pain, no palpitations - Gastrointestinal: No nausea vomiting or diarrhea Physical Exam General: No acute distress HEENT: No acute findings Neck: Supple Respiratory system: Able to talk in full sentences, no audible wheeze Cardiovascular: S1-S2 regular in rate and rhythm Gastrointestinal: Pain present Extremities: No new findings GLASS BEVELER: Alert awake oriented x3 motor intact Skin: Normal turgor [facility] Medical History Uncontrolled diabetes mellitus Non-compliant behavior Lipid disorder Hypertension, essential 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 Mother Cancer Maternal Grandfather No problems noted. Maternal Grandmother No problems noted. Paternal Grandfather No problems noted. Paternal Grandmother No problems noted. Brother No problems noted. Brother No problems noted. Daughter No problems noted. Daughter Breast cancer Social History Housing: House Alcohol intake: never Patient Tobacco Use Status: Never used Tobacco e-Cigarette/Vaping Use: Never Used service: No Current occupational status: retired Cognitive needs: No Hearing needs: No Vision needs: Yes Questionnaire Thrive Questionnaire Date Thrive assessed: 11/09/24 I am a: Parent/Caregiver What is your living situation today?: I have a steady place to live Within the past 12 months, did the food you bought not last and you didn't have the money to get more?: Never true Within the past 12 months, did you worry whether your food would run out before you got money to buy more?: Never true Do you have trouble paying for medicines?: No Do you have trouble getting transportation to medical appointments?: No Do you have trouble paying your heating and electricity bill?: No Do you have trouble taking care of your child, family member or friend?: No Do you have trouble with day-to-day activities such as bathing, preparing meals, shopping, managing finances, etc.?: No Are you currently unemployed and looking for a job?: No Are you interested in more education?: No Please select the resources that you would like help with: None Currently or been in a relationship where the following occur: No concerns reported THRIVE Score: 0 AUDIT C Alcohol Use Questionnaire (AUDIT-C) 1. How often do you have a drink containing alcohol?: Never 2. How many drinks containing alcohol do you have on a typical day when you are drinking?: 1 or 2 3. How often do you have six or more drinks on one occasion?: Never Total Score: 0 DEBORA-7 AMB Questionnaire DEBORA-7 Date DEBORA - 7 assessed: 02/22/24 Feeling nervous, anxious, or on edge: 0 = Not at all Not being able to stop or control worryin = Not at all Worrying too much about different things: 0 = Not at all Trouble relaxin = Not at all Being so restless that it is hard to sit still: 0 = Not at all Becoming easily annoyed or irritable: 0 = Not at all Feeling afraid as if something awful might happen: 0 = Not at all Total DEBORA-7 score (0-4 normal; 5-9 mild; 10-14 moderate; 15-21 severe): 0 Source: Developed by Drs. Oliver Hawkins, Apolonia Hoffman, Mau Anderson and colleagues, with an educational delphine from [employer]. Physical exam (Primary Care) Vital Signs: Last Vital Signs Pulse 78 11/12/24 15:05 BP 138/70 11/12/24 15:05 Pulse Ox 98 11/12/24 15:05 BMI result Body Mass Index 31.3 Tobacco/Smoking Status: Tobacco use Status Tobacco use date assessed 08/12/24 11/12/24 15:04 Patient Tobacco Use Status Never used Tobacco 11/12/24 15:04 e-Cigarette/Vaping Use Never Used 11/12/24 15:04 Thrive Assessment: Date of Thrive Assessment Date Thrive assessed 11/09/24 11/12/24 15:04 Currently or been in a relationship where the following occur: No concerns reported Coding Level of Care Code Est Pt Level 4 (67791) Diagnoses Hypertension, essential I10 Lipid disorder E78.9 Diabetes 1.5, 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 E13.21 Diabetes mellitus type: other specified (including KRYSTIAN) CKD stage 3a, GFR 45-59 ml/min N18.31 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 Z79.4 Assessment & Plan Assessment & Plan (1) Hypertension, essential: Code(s): I10 - Essential (primary) hypertension Category: Medical (2) Lipid disorder: Code(s): E78.9 - Disorder of lipoprotein metabolism, unspecified Category: Medical (3) Diabetes 1.5, managed as type 1: Code(s): E13.9 - Other specified diabetes mellitus without complications Category: Medical (4) Diabetic nephropathy: Code(s): E11.21 - Type 2 diabetes mellitus with diabetic nephropathy Category: Medical Qualifiers: Diabetes mellitus type: other specified (including KRYSTIAN) Qualified Code(s): E13.21 - Other specified diabetes mellitus with diabetic nephropathy (5) CKD stage 3a, GFR 45-59 ml/min: Code(s): N18.31 - Chronic kidney disease, stage 3a Category: Medical (6) 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 Diabetes Mellitus: - The patient has been followed by endocrinology at a medical center. - Hemoglobin A1c levels noted at various intervals: 8.8 in March, 8.1 in June, 8.4 in September. - There has been a fluctuation without achieving optimal control, as levels have remained above the target range of 7. - The patient's dietary management has been addressed, and she is aware of dietary instructions provided by her group practice pediatrician. - The patient is advised to continue working on dietary changes and increasing physical activity. Hypertension: - Blood pressure is controlled under current treatment with lisinopril. - The patient is advised to maintain her medication regimen. Chronic Kidney Disease (Nephropathy): - The last recorded Glomerular Filtration Rate (GFR) was 50 in August. - The recommendation has been made to repeat kidney function tests to monitor stability. Medical History: - Diabetes mellitus - Hypertension - Hyperlipidemia - Chronic kidney disease (mild nephropathy). Medications: - Lisinopril 20 mg for hypertension - Simvastatin 40 mg for hyperlipidemia - Diabetic medications managed by endocrinology Social History: - Participating in exercise regimen as advised - Adheres to dietary recommendations from the group practice pediatrician - Efforts to manage weight are ongoing Problem List - Type 2 Diabetes Mellitus - Essential Hypertension - Hyperlipidemia - Chronic Kidney Disease (mild nephropathy) Plan - Monitor blood pressure and continue lisinopril for hypertension control; blood pressure is currently under good control. - Continue simvastatin for management of hyperlipidemia. - Follow dietary guidance from endocrinology and maintain physical activity to help manage diabetes; aim to reduce Hemoglobin A1c to target range. - Reassess kidney function with laboratory tests; current status noted with a GFR of 50. Monitor for progression of nephropathy. - Refills for current medications, excluding diabetic prescriptions, will be provided. Follow-up 4 months Orders: Orders Comprehensive Met. Panel Today E13.9 - Other specified diabetes mellitus without complications, E78.9 - Disorder of lipoprotein metabolism, unspecified, I10 - Essential (primary) hypertension Complete Blood Count Auto Diff Today E13.9 - Other specified diabetes mellitus without complications, E78.9 - Disorder of lipoprotein metabolism, unspecified, I10 - Essential (primary) hypertension Medications: Refilled lisinopril 20 mg PO DAILY 90 tabs 1RF 90 days simvastatin 40 mg PO BEDTIME 90 tabs 1RF 90 days
[2024-11-12 15:05] VITALS: BP 138/70; PULSE 78; O2SAT 98; BMI 31.3
== END 2024-11-12 15:28 | disposition home or self-care (01) ==
LOC: HO.HMCC 15:00
PROVIDERS: PCP Internal Medicine; Visit Provider Internal Medicine
DX: I12.9 Hypertensive chronic kidney disease with stage 1 through stage 4 chronic kidney disease, or unspecified chronic kidney disease (principal); E13.9 Other specified diabetes mellitus without complications; E13.21 Other specified diabetes mellitus with diabetic nephropathy; N18.31 Chronic kidney disease, stage 3a; Z79.4 Long term (current) use of insulin; E78.9 Disorder of lipoprotein metabolism, unspecified

== ENCOUNTER 2024-11-12 14:59 | Outpatient (REF) | payer MEDICARE, MEDICAID, SELFPAY ==
[2024-11-12 16:15] LABS: MANUAL DIFF FLAG NO
[2024-11-12 16:16] LABS: Hematocrit 34.8 % (37.0-47.0); Hemoglobin 11.4 g/dl (12.0-16.0); Imm Gran Abs Auto 0.01 X10*3/uL (0.00-0.03); Imm Gran Pct Auto 0.2 % (0.0-0.4); Lymphocytes Absolute Auto 2.4 X10*3/uL (1.2-4.9); Mean Corpuscular HGB Conc 32.8 g/dl (31.0-35.0); Mean Corpuscular Hemoglobin 29.4 pg (27.0-33.0); Mean Corpuscular Volume 89.7 fL (80.0-98.0); NRBC Abs Auto 0.000 X10*3/uL (0.0-0.012); NRBC Pct Auto 0.0 /100WBC (0.0-0.2); Platelet Count 160 X10*3/uL (160-400); Red Blood Count 3.88 X10*6/uL (4.20-5.50); White Blood Count 5.0 X10*3/uL (4.8-10.8)
[2024-11-12 16:51] LABS: Alanine Aminotransferase 41 U/L (0-31); Albumin Level 4.2 g/dL (3.5-5.0); Alkaline Phosphatase 64 U/L (39-117); Anion Gap 9 (12-20); Aspartate Amino Transferase 28 U/L (5-31); Blood Urea Nitrogen 19 mg/dL (9-16); Calcium 9.6 mg/dL (8.4-10.2); Carbon Dioxide 29 mmol/L (22-29); Chloride 109 mmol/L (96-108); Estimated Glomerular Filt Rate 40; Potassium 3.9 mmol/L (3.3-5.1); Sodium 143 mmol/L (135-145); Total Protein 7.0 g/dL (6.5-8.0)
== END 2024-11-12 15:00 | disposition home or self-care (01) ==
LOC: HO.HMGCLDS 14:59
PROVIDERS: PCP Internal Medicine; Visit Provider Internal Medicine
DX: I12.9 Hypertensive chronic kidney disease with stage 1 through stage 4 chronic kidney disease, or unspecified chronic kidney disease (principal); E78.9 Disorder of lipoprotein metabolism, unspecified; E13.22 Other specified diabetes mellitus with diabetic chronic kidney disease; E13.21 Other specified diabetes mellitus with diabetic nephropathy; N18.31 Chronic kidney disease, stage 3a; Z79.4 Long term (current) use of insulin
CPT/HCPCS: 36415; 80053; 85025; 99212